=== PATIENT | female | born 1990 | race Caucasian/White ===

== ENCOUNTER 2016-12-24 14:41 | Inpatient (IN) ==
--- NOTE | 2016-12-24 14:58 | Emergency Department Note ---
Disposition Clinical Impression: Suicidal ideation Depression Qualifiers: Depression Type: unspecified Qualified Code(s): F32.9 - Major depressive disorder, single episode, unspecified Disposition: Admitted As Inpatient Condition: Good Referrals: Jolanta Leal [employer] [Advanced Practice Nurse] - Forms: ED Satisfaction Letter Time of Disposition: 16:27 Psych HPI - General Chief Complaint: ED Medical Clearance Stated Complaint: Medical clearance Time Seen by Provider: 12/24/16 14:52 Source: patient Mode of arrival: ambulatory Limitations: no limitations Nursing Notes Reviewed: Yes Vital Signs Reviewed: Yes - History of Present Illness HPI Narrative: 26-year-old with history of depression comes in with suicidal ideation. She states she is on medications but the symptoms seem to be getting worse. Pt complaint: suicidal ideation, feels depressed If medical clearance, reason: psychiatric condition Onset (ago): day(s) Duration: constant History of similar episodes: Yes Improves with: none Worsens with: none Context: significant life stressor Alleged intoxication: No Associated Psychiatric Symptoms: depression, suicidal ideation Traumatic symptoms: denies traumatic injury - Related Data Home Medications Medication Instructions Recorded Confirmed Citalopram [CeleXA] 20 mg PO DAILY 11/02/15 11/02/15 Cyclobenzaprine [Flexeril] 10 mg PO TID 11/02/15 11/02/15 Gabapentin [Neurontin] 600 mg PO TID 11/02/15 11/02/15 Allergies Allergy/AdvReac Type Severity Reaction Status Date / Time Penicillins [PCN] AdvReac Vomiting Verified 12/24/16 14:42 Constitutional: Denies: fever, chills, weakness, weight change Eyes: Denies: eye pain, eye discharge, vision change ENT ED: Denies: ear pain, throat pain, dental pain, hearing loss, epistaxis, congestion, dysphagia Cardiovascular: Denies: chest pain, palpitations, dyspnea on exertion, edema, syncope Respiratory: Denies: cough, dyspnea, wheezes, hemoptysis, stridor Gastrointestinal: Denies: abdominal pain, nausea, vomiting, diarrhea, constipation, hematemesis, melena, hematochezia Genitourinary: Denies: dysuria, frequency, hematuria, discharge Musculoskeletal: Denies: back pain, neck pain, arthralgia, myalgia Integumentary: Denies: rash, abrasion, lesions Neurological: Denies: headache, weakness, numbness, paresthesias, confusion, abnormal gait, vertigo Psychiatric: Reports: depression. 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: Reports: non-contributory - Social History Smoking Status: Current every day smoker Smokeless Tobacco Status: No Alcohol use: Reports: rarely Drug use: Reports: marijuana Physical Exam - General Limitations: no limitations General appearance: alert, in no apparent distress - Head Head exam: atraumatic, normocephalic, normal inspection - Eye Eye exam: Present: normal appearance, PERRL, EOMI - ENT ENT exam: normal exam, normal oropharynx, mucous membranes moist - Neck Neck exam: Present: normal inspection, full ROM, trachea midline - Chest Chest inspection: Present: normal inspection, symmetric chest wall rise - Respiratory Respiratory exam: Present: normal lung sounds bilaterally - Cardiovascular Cardiovascular exam: Present: regular rate, normal rhythm, normal heart sounds - Abdominal Exam Abdominal exam: Present: soft, Non-Tender. Absent: tenderness, distention, guarding, rebound, rigidity - Extremities Exam Extremities exam: Present: normal inspection, full ROM. Absent: tenderness, pedal edema - Expanded Lower Extremity Exam Neurovascular/Tendon exam: Absent: motor deficit, sensory deficit, tendon deficit Gait: observed and normal - Back Exam Back exam: Present: normal inspection, full ROM. Absent: tenderness - Neurological Exam Neurological exam: Present: alert, oriented X3 - Psychiatric Psychiatric exam: Present: normal affect, normal mood - Skin Skin exam: Present: warm, dry, intact, normal color Course Vital Signs Temperature 98.0 F 12/24/16 14:42 Pulse Rate 95 12/24/16 14:42 Respiratory Rate 16 12/24/16 14:42 Blood Pressure 137/83 12/24/16 14:42 O2 Sat by Pulse Oximetry 98 12/24/16 14:42 Temperature 98.0 F 12/24/16 14:42 Pulse Rate 95 12/24/16 14:42 Respiratory Rate 16 12/24/16 14:42 Blood Pressure 137/83 12/24/16 14:42 O2 Sat by Pulse Oximetry 98 12/24/16 14:42 Oxygen Delivery Oxygen Delivery Room Air Psych - Lab Data Result diagrams: 12/24/16 15:19 12/24/16 15:19 Lab Results 12/24/16 12/24/16 12/24/16 Range/Units 14:55 14:55 15:19 WBC 5.8 (4.3-11.1) K/mcL RBC 4.23 (3.82-4.97) M/mcL Hgb 12.4 (11.5-15.4) g/dL Hct 38.2 (35.3-44.9) % MCV 90.3 (83.0-100.0) fL MCH 29.3 (28.0-33.3) pg MCHC 32.5 (31.6-35.5) g/dL RDW 13.9 (11.5-14.5) % Plt Count 254 (140-400) K/mcL MPV 9.1 L (9.4-12.4) fL Immature Gran % 0.3 (0-4) % Seg Neutrophils % 59.8 % Lymphocytes % 29.8 % Monocytes % 5.8 % Eosinophils % 3.4 % Basophils % 0.9 % Neutrophils # 3.5 (1.6-8.9) K/mcL Lymphocytes # 1.7 (0.6-4.6) K/mcL Monocytes # 0.3 (0.0-1.3) K/mcL Eosinophils # 0.2 (0.0-0.6) K/mcL Basophils # 0.1 (0.0-0.2) K/mcL Sodium (136-145) mEq/L Potassium (3.5-4.5) mEq/L Chloride (98-109) mEq/L Carbon Dioxide (19-29) mEq/L BUN (7-20) mg/dL Creatinine (0.57-1.11) mg/dL Est GFR ( Amer) (> 60) Est GFR (Non-Af Amer) (> 60) BUN/Creatinine Ratio (6-26) Glucose (70-99) mg/dL Calculated Osmolality (280-300) Calcium (8.6-10.8) mg/dL Serum , Qual (Negative) Urine Color Yellow (Yellow) Urine Clarity Clear (Clear) Urine pH 6.0 (5.0-8.0) pH Units Ur Specific [place] 1.011 (1.010-1.025) Urine Protein Negative (Neg-Trace) mg/dL Urine Glucose (UA) Normal (Normal) mg/dL Urine Ketones Negative (Negative) mg/dL Urine Blood Moderate H (Negative) Urine Nitrite Negative (Negative) Urine Bilirubin Negative (Negative) Urine Urobilinogen Normal (Normal) mg/dL Ur Leukocyte Esterase Negative (Negative) Urine Microscopic RBC 3-5 H (0-3) per hpf Urine Microscopic WBC 0-3 (0-3) per hpf Ur Squamous Epith Cells Many H (None-Few) per lpf Urine Bacteria None Seen (None-Few) per hpf Hyaline Casts None Seen (None-Few) per lpf Salicylates (15-30) mg/dL Urine Opiates Screen Negative (Traccz=844) ng/mL Acetaminophen (10-30) mcg/mL Ur Barbiturates Screen Negative (Tgcdxn=014) ng/mL Ur Phencyclidine Scrn Negative (Cutoff=25) ng/mL Ur Amphetamines Screen Negative (Mfjftb=6742) ng/mL U Benzodiazepines Scrn Negative (Bestbu=573) ng/mL Urine Cocaine Screen Negative (Cutoff= 300) ng/mL U Marijuana (THC) Screen Negative (Cutoff = 50) ng/mL Ethyl Alcohol (0-10) mg/dL 12/24/16 12/24/16 Range/Units 15:19 15:19 WBC (4.3-11.1) K/mcL RBC (3.82-4.97) M/mcL Hgb (11.5-15.4) g/dL Hct (35.3-44.9) % MCV (83.0-100.0) fL MCH (28.0-33.3) pg MCHC (31.6-35.5) g/dL RDW (11.5-14.5) % Plt Count (140-400) K/mcL MPV (9.4-12.4) fL Immature Gran % (0-4) % Seg Neutrophils % % Lymphocytes % % Monocytes % % Eosinophils % % Basophils % % Neutrophils # (1.6-8.9) K/mcL Lymphocytes # (0.6-4.6) K/mcL Monocytes # (0.0-1.3) K/mcL Eosinophils # (0.0-0.6) K/mcL Basophils # (0.0-0.2) K/mcL Sodium 140 (136-145) mEq/L Potassium 4.1 (3.5-4.5) mEq/L Chloride 106 (98-109) mEq/L Carbon Dioxide 26 (19-29) mEq/L BUN 10 (7-20) mg/dL Creatinine 0.80 (0.57-1.11) mg/dL Est GFR ( Amer) > 60 (> 60) Est GFR (Non-Af Amer) > 60 (> 60) BUN/Creatinine Ratio 13 (6-26) Glucose 129 H (70-99) mg/dL Calculated Osmolality 291 (280-300) Calcium 8.7 (8.6-10.8) mg/dL Serum , Qual Negative (Negative) Urine Color (Yellow) Urine Clarity (Clear) Urine pH (5.0-8.0) pH Units Ur Specific [place] (1.010-1.025) Urine Protein (Neg-Trace) mg/dL Urine Glucose (UA) (Normal) mg/dL Urine Ketones (Negative) mg/dL Urine Blood (Negative) Urine Nitrite (Negative) Urine Bilirubin (Negative) Urine Urobilinogen (Normal) mg/dL Ur Leukocyte Esterase (Negative) Urine Microscopic RBC (0-3) per hpf Urine Microscopic WBC (0-3) per hpf Ur Squamous Epith Cells (None-Few) per lpf Urine Bacteria (None-Few) per hpf Hyaline Casts (None-Few) per lpf Salicylates < 5.0 L (15-30) mg/dL Urine Opiates Screen (Joimon=551) ng/mL Acetaminophen < 1.0 L (10-30) mcg/mL Ur Barbiturates Screen (Nyabcs=622) ng/mL Ur Phencyclidine Scrn (Cutoff=25) ng/mL Ur Amphetamines Screen (Kjvcqq=4516) ng/mL U Benzodiazepines Scrn (Ytjrkp=107) ng/mL Urine Cocaine Screen (Cutoff= 300) ng/mL U Marijuana (THC) Screen (Cutoff = 50) ng/mL Ethyl Alcohol < 10 (0-10) mg/dL Psychiatric Medical Clearance - Medical Clearance Checklist Does the patient have a NEW psychiatric condition?: No Any abnormalities indicating possible medical illness?: No Any history of medical issues?: No Medical History: No Social History Section defined Any abnormal vital signs prior to transfer?: No Current Vitals: Last Vital Signs Temp 98.0 F 12/24/16 14:42 Pulse 95 12/24/16 14:42 Resp 16 12/24/16 14:42 BP 137/83 12/24/16 14:42 Pulse Ox 98 12/24/16 14:42 Is the patient intoxicated or cognitively impaired?: No Psychiatric Lab Panel: Drug Levels and Toxicity 12/24/16 12/24/16 14:55 15:19 Urine Opiates Screen Negative Acetaminophen < 1.0 L Ur Barbiturates Screen Negative Ur Phencyclidine Scrn Negative Ur Amphetamines Screen Negative U Benzodiazepines Scrn Negative Urine Cocaine Screen Negative U Marijuana (THC) Screen Negative Ethyl Alcohol < 10 Any abnormalities on the physical exam?: No Any abnormal labs?: No Abnormal Labs: Abnormal lab results MPV 9.1 fL (9.4-12.4) L 12/24/16 15:19 Glucose 129 mg/dL (70-99) H 12/24/16 15:19 Urine Blood Moderate (Negative) H 12/24/16 14:55 Urine Microscopic RBC 3-5 per hpf (0-3) H 12/24/16 14:55 Ur Squamous Epith Cells Many per lpf (None-Few) H 12/24/16 14:55 Salicylates < 5.0 mg/dL (15-30) L 12/24/16 15:19 Acetaminophen < 1.0 mcg/mL (10-30) L 12/24/16 15:19 Does the patient require durable medical equiptment?: No Is the patient ambulatory?: Yes Is the patient a fall risk?: No Has the patient been medically cleared?: Yes Any acute medical condition require Tx prior to transfer?: No Statement of Medical Clearance: I have evaluated the patient, reviewed diagnostic information, and certify that the patient's medical condition is sufficiently stable that transfer to the psychiatric unit does not pose a significant risk of deterioration.
[2016-12-24 15:13] LABS: Bilirubin,Urine Negative (Negative); Blood,Urine Moderate (Negative); Clarity,Urine Clear (Clear); Color,Urine Yellow (Yellow); Glucose,Urine (UA) Normal (Normal); Ketones,Urine Negative (Negative); Leukocyte Esterase,Urine Negative (Negative); Nitrite,Urine Negative (Negative); Protein,Urine Negative (Neg-Trace); Specific Gravity,Urine 1.011 (1.010-1.025); Urobilinogen,Urine Normal (Normal)
[2016-12-24 15:16] LABS: Bacteria,Urine None Seen per hpf (None-Few); Hyaline Casts,Urine None Seen per lpf (None-Few); Squamous Epithelial Cell,Urine Many per lpf (None-Few); WBC,Urine 0-3 per hpf (0-3)
[2016-12-24 15:17] LABS: Amphetamine Screen,Urine Negative ng/mL (Cutoff=1000); Barbiturate Screen,Urine Negative ng/mL (Cutoff=200); Benzodiazepines Screen,Urine Negative ng/mL (Cutoff=200); Cannabinoid Screen,Urine Negative ng/mL (Cutoff = 50); Cocaine Screen,Urine Negative ng/mL (Cutoff= 300); Opiate Screen,Urine Negative ng/mL (Cutoff=300); Phencyclidine Screen,Urine Negative ng/mL (Cutoff=25)
[2016-12-24 15:36] LABS: Basophils # 0.1 K/mcL (0.0-0.2); Basophils % 0.9 %; Eosinophils # 0.2 K/mcL (0.0-0.6); Eosinophils % 3.4 %; Hematocrit 38.2 % (35.3-44.9); Hemoglobin 12.4 g/dL (11.5-15.4); Immature Granulocytes % 0.3 % (0-4); Lymphocytes # 1.7 K/mcL (0.6-4.6); Lymphocytes % 29.8 %; Mean Corpuscular HGB Conc 32.5 g/dL (31.6-35.5); Mean Corpuscular Hemoglobin 29.3 pg (28.0-33.3); Mean Corpuscular Volume 90.3 fL (83.0-100.0); Mean Platelet Volume 9.1 fL (9.4-12.4); Monocytes # 0.3 K/mcL (0.0-1.3); Monocytes % 5.8 %; Neutrophils # 3.5 K/mcL (1.6-8.9); Platelet Count 254 K/mcL (140-400); Red Blood Count 4.23 M/mcL (3.82-4.97); Red Cell Distribution Width 13.9 % (11.5-14.5); Segmented Neutrophils % 59.8 %
[2016-12-24 15:48] LABS: Acetaminophen < 1.0 mcg/mL (10-30); BUN/Creatinine Ratio 13 (6-26); Blood Urea Nitrogen 10 mg/dL (7-20); Calcium 8.7 mg/dL (8.6-10.8); Carbon Dioxide 26 mEq/L (19-29); Chloride 106 mEq/L (98-109); Ethanol < 10 mg/dL (0-10); Glucose 129 mg/dL (70-99); Osmolality,Calculated 291 (280-300); Potassium 4.1 mEq/L (3.5-4.5); Salicylate < 5.0 mg/dL (15-30); Sodium 140 mEq/L (136-145); eGFR For African Americans > 60 (> 60); eGFR For Non-African Americans > 60 (> 60)
[2016-12-24] MEDS ORDERED: traZODone 50 MG TABLET PO PRN (17:24)
[2016-12-24] MEDS ORDERED: Haloperidol Lactate 5 MG/ML VIAL IM PRN (17:24)
[2016-12-24] MEDS ORDERED: *HR* LORazepam 1 MG TABLET PO PRN (17:24)
[2016-12-24] MEDS ORDERED: *HR* LORazepam 2 MG/ML VIAL IM PRN (17:24)
[2016-12-24] MEDS ORDERED: Mag Hydrox/Al Hydrox/Simeth 30 ML UDC PO PRN (17:24)
[2016-12-24] MEDS ORDERED: hydrOXYzine pamoate 25 MG CAPSULE PO PRN (17:24)
[2016-12-24] MEDS ORDERED: MOM Conc 10 ML UD.LIQ PO PRN (17:24)
[2016-12-24] MEDS ORDERED: Ibuprofen 800 MG TABLET PO PRN (17:31)
[2016-12-24] MEDS: Nicotine 21 MG PATCH.TD24 TD SCH (18:32)
[2016-12-24] MEDS: RisperiDAL 3 MG TABLET PO SCH (21:25)
[2016-12-24] MEDS: Carbidopa/Levodopa 25/100 TABLET PO SCH (21:25)
[2016-12-24] MEDS: Gabapentin 400 MG CAPSULE PO SCH (21:25)
[2016-12-25] MEDS: Gabapentin 300 MG CAPSULE PO SCH (08:42)
[2016-12-25] MEDS: Nicotine 21 MG PATCH.TD24 TD SCH (08:43)
[2016-12-25] MEDS: Carbidopa/Levodopa 25/100 TABLET PO SCH ×2 (08:44→21:12)
--- NOTE | 2016-12-25 09:49 | Psychiatry History & Physical ---
Date of Encounter: 12/25/16 Time of Encounter: 09:44 History of Present Illness Patient Stated Chief Complaint: depressed,suicidal Medicare Admission Attestation: For traditional Medicare patients the provided hospital inpatient services are reasonable and necessary and in the case of services not specified as inpatient -only under 42 CFR 419.22 (n), that they are appropriately provided as inpatient services in accordance 42 CFR 412.3. For Critical Access Hospital the patient may reasonably be expected to be discharged or transferred to a hospital within 96 hours after admission to the Critical Access Hospital. Admitted From: Emergency Dept History of Present Illness: Ms. Salas is a 26 year old female was history of depression and bipolar disorder presented to the emergency department complaining of suicidal ideation with plan to overdose on her medication. Patient is under care off psychiatrist and see a counselor and her medication has been changed in the past several weeks from Zyprexa to Risperdal also Lexapro was added. Patient reported Lexapro has not been helping her depression and in the process she responded well to Zoloft. Patient also is having some hormonal problems and being evaluated by her primary care provider. She reported poor sleep, irritability, depressed mood and poor energy and suicidal ideation. Past Med Surg Social Fam HX - Past Medical History Medical history: asthma - Past Psychiatric History Psychiatric history: Reports: bipolar, depression, prior suicide attempt, previous psychiatric hospitalization Past psychiatric history details: Previous hospitalization in [place] and [place]. Family psychiatric history: Unknown Family History of Suicide: Unknown - Past Surgical History Surgical History: cholecystectomy - Social History Smoking Status: Current every day smoker Smokeless Tobacco Status: No Alcohol use: rarely Drug use: marijuana Medications & Allergies Cyclobenzaprine [Flexeril] 10 mg PO BID 11/02/15 [History] Gabapentin [Neurontin] 600 - 1,200 mg PO QAM AND QHS 11/02/15 [History] Carbidopa/Levodopa [Carbidopa-Levodopa 25-100 Tab] 2 tab PO BID 12/24/16 [ History] Ergocalciferol (VITAMIN D2) [Vitamin D2] 50,000 unit PO QWEEK 12/24/16 [History] Escitalopram [Lexapro] 10 mg PO DAILY 12/24/16 [History] Etonogestrel/Ethinyl Estradiol [Nuvaring Vaginal Ring] 1 each VG AD 12/24/16 [ History] Gabapentin [Neurontin] 600 mg PO QPM 12/24/16 [History] Ibuprofen [Ibuprofen] 800 mg PO Q8H PRN 12/24/16 [History] Propranolol [Inderal] 20 mg PO BID 12/24/16 [History] RisperiDONE [Risperidone] 3 mg PO HS 12/24/16 [History] Allergies Penicillins [PCN] Adverse Reaction (Verified 12/24/16 14:42) Vomiting Review of Systems Psychiatric: Reports: depression, abnormal sleep pattern, suicidal ideation, irritability Mental Status Exam Patient orientation: Yes Person, Yes Time, Yes Place Level of alertness: Alert Patient appearance: Appropriate, Well Groomed, Obese Behavior: calm, cooperative Psychomotor activity: Normal Eye contact: Maintains Eye Contact Mood description: Depressed, Anxious Affect description: congruent with mood, full range Speech pattern: Normal rate, Normal rhythm, Normal tone Speech volume: Normal Thought process: Linear, Goal Oriented Thought content: Yes Suicidal ideation, No Homicidal ideation, No Overt delusions Perceptual disturbances: No Auditory hallucinations, No Visual hallucinations Attention span: Capable of Focused Attention Memory description: Grossly Intact Patient reliability: Reliable Historian Intelligence estimate: Average Judgment: Limited Insight: Partial Results - Vital Signs Vital signs: Temp Pulse Resp BP Pulse Ox 97.8 F 87 18 143/90 98 12/24/16 19:47 12/24/16 19:47 12/24/16 19:47 12/24/16 19:47 12/24/16 14:42 - Labs Labs: Laboratory Last Values WBC 5.8 K/mcL (4.3-11.1) 12/24/16 15:19 RBC 4.23 M/mcL (3.82-4.97) 12/24/16 15:19 Hgb 12.4 g/dL (11.5-15.4) 12/24/16 15:19 Hct 38.2 % (35.3-44.9) 12/24/16 15:19 MCV 90.3 fL (83.0-100.0) 12/24/16 15:19 MCH 29.3 pg (28.0-33.3) 12/24/16 15:19 MCHC 32.5 g/dL (31.6-35.5) 12/24/16 15:19 RDW 13.9 % (11.5-14.5) 12/24/16 15:19 Plt Count 254 K/mcL (140-400) 12/24/16 15:19 MPV 9.1 fL (9.4-12.4) L 12/24/16 15:19 Immature Gran % 0.3 % (0-4) 12/24/16 15:19 Seg Neutrophils % 59.8 % 12/24/16 15:19 Lymphocytes % 29.8 % 12/24/16 15:19 Monocytes % 5.8 % 12/24/16 15:19 Eosinophils % 3.4 % 12/24/16 15:19 Basophils % 0.9 % 12/24/16 15:19 Neutrophils # 3.5 K/mcL (1.6-8.9) 12/24/16 15:19 Lymphocytes # 1.7 K/mcL (0.6-4.6) 12/24/16 15:19 Monocytes # 0.3 K/mcL (0.0-1.3) 12/24/16 15:19 Eosinophils # 0.2 K/mcL (0.0-0.6) 12/24/16 15:19 Basophils # 0.1 K/mcL (0.0-0.2) 12/24/16 15:19 Sodium 140 mEq/L (136-145) 12/24/16 15:19 Potassium 4.1 mEq/L (3.5-4.5) 12/24/16 15:19 Chloride 106 mEq/L (98-109) 12/24/16 15:19 Carbon Dioxide 26 mEq/L (19-29) 12/24/16 15:19 BUN 10 mg/dL (7-20) 12/24/16 15:19 Creatinine 0.80 mg/dL (0.57-1.11) 12/24/16 15:19 Est GFR ( Amer) > 60 (> 60) 12/24/16 15:19 Est GFR (Non-Af Amer) > 60 (> 60) 12/24/16 15:19 BUN/Creatinine Ratio 13 (6-26) 12/24/16 15:19 Glucose 129 mg/dL (70-99) H 12/24/16 15:19 Calculated Osmolality 291 (280-300) 12/24/16 15:19 Calcium 8.7 mg/dL (8.6-10.8) 12/24/16 15:19 Serum , Qual Negative (Negative) 12/24/16 15:19 Urine Color Yellow (Yellow) 12/24/16 14:55 Urine Clarity Clear (Clear) 12/24/16 14:55 Urine pH 6.0 pH Units (5.0-8.0) 12/24/16 14:55 Ur Specific [place] 1.011 (1.010-1.025) 12/24/16 14:55 Urine Protein Negative mg/dL (Neg-Trace) 12/24/16 14:55 Urine Glucose (UA) Normal mg/dL (Normal) 12/24/16 14:55 Urine Ketones Negative mg/dL (Negative) 12/24/16 14:55 Urine Blood Moderate (Negative) H 12/24/16 14:55 Urine Nitrite Negative (Negative) 12/24/16 14:55 Urine Bilirubin Negative (Negative) 12/24/16 14:55 Urine Urobilinogen Normal mg/dL (Normal) 12/24/16 14:55 Ur Leukocyte Esterase Negative (Negative) 12/24/16 14:55 Urine Microscopic RBC 3-5 per hpf (0-3) H 12/24/16 14:55 Urine Microscopic WBC 0-3 per hpf (0-3) 12/24/16 14:55 Ur Squamous Epith Cells Many per lpf (None-Few) H 12/24/16 14:55 Urine Bacteria None Seen per hpf (None-Few) 12/24/16 14:55 Hyaline Casts None Seen per lpf (None-Few) 12/24/16 14:55 Salicylates < 5.0 mg/dL (15-30) L 12/24/16 15:19 Urine Opiates Screen Negative ng/mL (Rvlzmf=598) 12/24/16 14:55 Acetaminophen < 1.0 mcg/mL (10-30) L 12/24/16 15:19 Ur Barbiturates Screen Negative ng/mL (Gjzvbd=702) 12/24/16 14:55 Ur Phencyclidine Scrn Negative ng/mL (Cutoff=25) 12/24/16 14:55 Ur Amphetamines Screen Negative ng/mL (Wowblf=5561) 12/24/16 14:55 U Benzodiazepines Scrn Negative ng/mL (Vgssxb=667) 12/24/16 14:55 Urine Cocaine Screen Negative ng/mL (Cutoff= 300) 12/24/16 14:55 U Marijuana (THC) Screen Negative ng/mL (Cutoff = 50) 12/24/16 14:55 Ethyl Alcohol < 10 mg/dL (0-10) 12/24/16 15:19 Assessment and Plan (1) Bipolar 1 disorder, depressed Current visit: Yes Status: Acute Plan: Admit inpatient for safety and stabilization, Close observation, Suicide Precautions per unit protocol, Encourage participation in unit milieu, Group Therapy, Monitor sleep, Monitor appetite Additional Plan: 1. Discontinue Lexapro due to lack of response. 2. Start Zoloft 50 mg daily, history of good response 3. Order prolactin level to evaluate side effects of risperidone. Risks, benefits, side effects, alternatives discussed w/pt: Yes Patient agreeable to treatment: Yes
[2016-12-25] MEDS: Gabapentin 400 MG CAPSULE PO SCH (21:12)
[2016-12-25] MEDS: RisperiDAL 3 MG TABLET PO SCH (21:13)
[2016-12-26] MEDS: Nicotine 21 MG PATCH.TD24 TD SCH (08:48)
[2016-12-26] MEDS: Gabapentin 300 MG CAPSULE PO SCH (08:49)
[2016-12-26] MEDS: Carbidopa/Levodopa 25/100 TABLET PO SCH ×2 (08:49→20:56)
--- NOTE | 2016-12-26 12:37 | Psychiatry Progress Note ---
Date of Encounter: 12/26/16 Time of Encounter: 12:00 Subjective Interval history: Patient seen for follow-up. Nursing staff reports she is compliant with his medication and seclusive at time. She tolerated adding Zoloft and denies any side effects, she reports that "" her head is clear. Denies suicidal ideation. I discussed with patient that prolactin level was elevated and we will continue to monitor any side effects from Risperdal. Also she will be tapered off Sinemet and monitor her response regarding her muscle spasm. Patient is interactive and interested and medication adjustments and motivated to do more activities. Review of Systems Psychiatric: Reports: depression, abnormal sleep pattern, suicidal ideation, mood swings Objective: Exam Patient orientation: Yes Person, Yes Time, Yes Place Level of alertness: Alert Patient appearance: Appropriate, Well Groomed, Obese Behavior: calm, cooperative Psychomotor activity: Normal Eye contact: Maintains Eye Contact Mood description: Euthymic/stable, Anxious Affect description: congruent with mood, full range Speech pattern: Normal rate, Normal rhythm, Normal tone Speech volume: Normal Thought process: Linear, Goal Oriented Thought content: Yes Suicidal ideation, No Homicidal ideation, No Overt delusions Perceptual disturbances: No Auditory hallucinations, No Visual hallucinations Judgment: Limited Insight: Partial Results - Vital Signs Vital Signs: Temp Pulse Resp BP Pulse Ox 97.8 F 107 18 122/80 98 12/26/16 08:37 12/26/16 08:37 12/26/16 08:37 12/26/16 08:37 12/24/16 14:42 - Labs Labs: Laboratory Results - last 24 hr 12/25/16 11:46 Prolactin 35.43 H Assessment and Plan (1) Bipolar 1 disorder, depressed Current visit: Yes Status: Acute Plan: Continue hospitalization, Close observation, Suicide Precautions per unit protocol, Encourage participation in unit milieu, Group Therapy, Monitor sleep, Monitor appetite Additional Plan: We will taper off Sinemet. Discussed with patient's medication changes and she is agreeable. Risks, benefits, side effects, alternatives discussed w/pt: Yes Patient agreeable to treatment: Yes Consult Discharge Plan - Plan Referrals: [facility] [Outside] - 01/01/17 8:00 am (The above appointment is with Dr. Hammer for counseling. You will also see Dr. Iqbal on 02/20/2017 at 8: 00am)
[2016-12-26] MEDS: RisperiDAL 3 MG TABLET PO SCH (20:56)
[2016-12-26] MEDS: Gabapentin 400 MG CAPSULE PO SCH (20:56)
[2016-12-27] MEDS: Gabapentin 300 MG CAPSULE PO SCH (08:25)
[2016-12-27] MEDS: Carbidopa/Levodopa 25/100 TABLET PO SCH ×2 (08:26→20:57)
[2016-12-27] MEDS: Nicotine 21 MG PATCH.TD24 TD SCH (08:27)
--- NOTE | 2016-12-27 13:49 | Psychiatry Progress Note ---
Date of Encounter: 12/27/16 Time of Encounter: 01:16 Subjective Interval history: Patient seen and interviewed. History and physical examination reviewed. The patient continued to do well. Making progress. Suicidal ideations have subsided for most part. Patient is endorsing some hopeless feelings but is attending groups and participating in activities and is working on a safety plan. Tolerating medications fairly well. Becoming more future oriented. Overall doing better Review of Systems Integumentary: Reports: other Psychiatric: Reports: depression, anxiety Objective: Exam Patient orientation: Yes Person, Yes Time, Yes Place Level of alertness: Alert Patient appearance: Appropriate, Well Groomed, Obese Behavior: calm, cooperative Psychomotor activity: Normal Eye contact: Maintains Eye Contact Mood description: Euthymic/stable, Anxious Affect description: congruent with mood, full range Speech pattern: Normal rate, Normal rhythm, Normal tone Speech volume: Normal Thought process: Linear, Goal Oriented Thought content: No Suicidal ideation, No Homicidal ideation, No Overt delusions Perceptual disturbances: No Auditory hallucinations, No Visual hallucinations Judgment: Limited Insight: Partial Results - Vital Signs Vital Signs: Temp Pulse Resp BP Pulse Ox 97.4 F L 99 16 114/79 98 12/27/16 08:28 12/27/16 08:28 12/27/16 08:28 12/27/16 08:28 12/24/16 14:42 Assessment and Plan (1) Bipolar 1 disorder, depressed Current visit: Yes Status: Acute Plan: Continue hospitalization, Close observation, Suicide Precautions per unit protocol, Encourage participation in unit milieu, Group Therapy, Monitor sleep, Monitor appetite Additional Plan: Continue current medications. Possible discharge tomorrow. Risks, benefits, side effects, alternatives discussed w/pt: Yes Patient agreeable to treatment: Yes Consult Discharge Plan - Plan Referrals: [facility] [Outside] - 01/01/17 8:00 am (The above appointment is with Dr. Hammer for counseling. You will also see Dr. Iqbal on 02/20/2017 at 8: 00am)
[2016-12-27] MEDS: RisperiDAL 3 MG TABLET PO SCH (20:57)
[2016-12-27] MEDS: Gabapentin 400 MG CAPSULE PO SCH (20:57)
[2016-12-27] MEDS ORDERED: Carbidopa/Levodopa 25/100 TABLET PO ONE (22:20)
[2016-12-28] MEDS: Nicotine 21 MG PATCH.TD24 TD SCH (09:06)
[2016-12-28] MEDS: Carbidopa/Levodopa 25/100 TABLET PO SCH (09:06)
[2016-12-28] MEDS: Gabapentin 300 MG CAPSULE PO SCH (09:07)
[2016-12-28 09:12] VITALS: BP 121/78
--- NOTE | 2016-12-28 10:48 | Discharge Summary ---
Date of Encounter: 12/28/16 Time of Encounter: 09:30 Diagnosis - Discharge Diagnosis (1) Bipolar 1 disorder, depressed Status: Acute Medications - Discharge Medications Prescriptions: Sertraline [Zoloft] 50 mg PO DAILY #30 tablet Cyclobenzaprine [Flexeril] 10 mg PO BID 11/02/15 [History] Gabapentin [Neurontin] 600 - 1,200 mg PO QAM AND QHS 11/02/15 [History] Ergocalciferol (VITAMIN D2) [Vitamin D2] 50,000 unit PO QWEEK 12/24/16 [History] Etonogestrel/Ethinyl Estradiol [Nuvaring Vaginal Ring] 1 each VG AD 12/24/16 [ History] Gabapentin [Neurontin] 600 mg PO QPM 12/24/16 [History] Ibuprofen 800 mg PO Q8H PRN 12/24/16 [History] Propranolol [Inderal] 20 mg PO BID 12/24/16 [History] RisperiDONE [Risperidone] 3 mg PO HS 12/24/16 [History] Sertraline [Zoloft] 50 mg PO DAILY #30 tablet 12/28/16 [Rx] Allergies Penicillins [PCN] Adverse Reaction (Verified 12/24/16 14:42) Vomiting Results Procedures and tests throughout hospitalization: Completed Lab Orders Category Date Time Status Prolactin Routine Lab 12/25/16 11:46 Completed Provider Date of admission: 12/24/16 16:36 Primary care physician: PCP NO Discharging clinician: Dong Downing Assessment and Plan - Patient/Caregiver Discharge Instructions Activity: resume usual activities as tolerated Diet: regular diet - Follow up Plan Follow up with: [facility] [Outside] - 01/01/17 8:00 am (The above appointment is with Dr. Hammer for counseling. You will also see Dr. Iqbal on 02/20/2017 at 8: 00am) Overall status at discharge: Stable Disposition: Home, Self-Care Hospital Course Hospital course: Ms. Salas is a 26 year old female who was hospitalized for depression and suicidal ideation the plan to overdose After reviewing the symptom diagnoses and treatment planning spending that his benefits side effects alternatives to treatment consonants of no treatment getting informed consent from the patient patient was treated with Zoloft 50 mg daily and Risperdal 3 mg at bedtime. Patient's Sinemet was tapered and discontinued. Patient was continued on Neurontin which she was taking prior to hospitalization. Patient was encouraged to attend and parts of it in groups and activities on the unit which she did. Patient started noticing improvement in her mood or hopelessness helplessness subsided she became future oriented and worked on a safety plan and is able to verbalize it. Patient tolerated medications fairly well did not report any side effects. Overall patient's condition stabilized. - Time Spent with Patient Total time spent providing and/or coordinating discharge services: Less than 30 minutes Quality - Multiple Antipsychotics Patient discharged on 2 or more antipsychotic medications: No Procedures - Procedures Procedures: Medication Management, Crisis Stabilization, Supportive Therapy, Group Therapy, Psychoeducational Therapy Mental Status Exam - Mental Status Exam Patient orientation: Yes Person, Yes Time, Yes Place Level of alertness: Alert Patient appearance: Appropriate, Well Groomed, Obese Behavior: calm, cooperative Psychomotor activity: Normal Eye contact: Maintains Eye Contact Mood description: Euthymic/stable Affect description: congruent with mood, full range Speech pattern: Normal rate, Normal rhythm, Normal tone Speech Volume: Normal Thought process: Linear, Goal Oriented Thought Content: No Suicidal ideation, No Homicidal ideation, No Overt delusions Perceptual Disturbances: No Auditory hallucinations, No Visual hallucinations Judgment: Good Insight: Full
== END 2016-12-28 12:05 | disposition home or self-care (01) | DRG 885 ==
LOC: EMEROO 14:41 → SUATTDRO 16:36 → 1ANU 16:36
PROVIDERS: ADMIT Psychiatry & Neurology Psychiatry; ATTEND Psychiatry & Neurology Psychiatry

== ENCOUNTER 2017-01-13 21:10 | Inpatient (IN) ==
--- NOTE | 2017-01-13 22:05 | Emergency Department Note ---
Disposition Clinical Impression: Suicidal thoughts Disposition: Still a Patient Referrals: NO,PCP [Primary Care Provider] - Forms: ED Satisfaction Letter Psych HPI - General Chief Complaint: ED Psychiatric Symptoms Stated Complaint: si has mills on arms/tried to cut herself Time Seen by Provider: 01/13/17 21:59 Source: patient Mode of arrival: ambulatory Limitations: no limitations Nursing Notes Reviewed: Yes Vital Signs Reviewed: Yes - History of Present Illness HPI Narrative: Patient presents to emergency department complaining of suicidal thoughts. Patient states she was recently admitted to psych. She was taking off her Lexapro and started on Zoloft. Patient states she has tried to overdose before and she would again. Patient states she tried to cut her left wrist with a knife but it was too dull. Denies any physical complaints. Onset (ago): hour(s) Duration: constant History of similar episodes: Yes Improves with: none Worsens with: medication Context: new medication(s) Alleged intoxication: No Associated Psychiatric Symptoms: depression, suicidal ideation Traumatic symptoms: denies traumatic injury Treatments prior to arrival: none Self harm or harm to others: admits thoughts of self harm, self-inflicted trauma - Related Data Home Medications Medication Instructions Recorded Confirmed Cyclobenzaprine [Flexeril] 10 mg PO BID 11/02/15 12/24/16 Gabapentin [Neurontin] 600 - 1,200 mg PO QAM AND QHS 11/02/15 12/24/16 Ergocalciferol (VITAMIN D2) 50,000 unit PO QWEEK 12/24/16 12/24/16 [Vitamin D2] Etonogestrel/Ethinyl Estradiol 1 each VG AD 12/24/16 12/24/16 [Nuvaring Vaginal Ring] Gabapentin [Neurontin] 600 mg PO QPM 12/24/16 12/24/16 Ibuprofen 800 mg PO Q8H PRN 12/24/16 12/24/16 Propranolol [Inderal] 20 mg PO BID 12/24/16 12/24/16 RisperiDONE [Risperidone] 3 mg PO HS 12/24/16 12/24/16 Previous Rx's Medication Instructions Recorded Sertraline [Zoloft] 50 mg PO DAILY #30 tablet 12/28/16 Allergies Allergy/AdvReac Type Severity Reaction Status Date / Time Penicillins [PCN] AdvReac Vomiting Verified 01/13/17 21:19 All systems ED: reviewed and negative except as stated. Constitutional: Denies: fever Cardiovascular: Denies: chest pain Gastrointestinal: Denies: abdominal pain, vomiting, diarrhea Past Medical History - Past Medical History Attestation: Yes The following information was validated with the patient. 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 One small abrasion to left wrist. Abdomen soft nontender. - General Limitations: no limitations General appearance: alert - Head Head exam: atraumatic, normocephalic - Eye Eye exam: Present: normal appearance - ENT ENT exam: normal exam, normal oropharynx - Neck Neck exam: Present: normal inspection - Chest Chest inspection: Present: normal inspection - Respiratory Respiratory exam: Present: normal lung sounds bilaterally - Cardiovascular Cardiovascular exam: Present: regular rate, normal rhythm, normal heart sounds - Abdominal Exam Abdominal exam: Present: soft, Non-Tender - Neurological Exam Neurological exam: Present: alert, oriented X3, CN II-XII intact - Psychiatric Psychiatric exam: Present: normal mood, flat affect - Skin Skin exam: Present: warm, dry, intact Course Course Narrative: Awake alert and cooperative. 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 Time: 22:05 Vital Signs Temperature 98.1 F 01/13/17 21:19 Pulse Rate 95 01/13/17 21:19 Respiratory Rate 20 01/13/17 21:19 Blood Pressure 113/75 01/13/17 21:19 O2 Sat by Pulse Oximetry 95 01/13/17 21:19 Temperature 98.1 F 01/13/17 21:19 Pulse Rate 95 01/13/17 21:19 Respiratory Rate 20 01/13/17 21:19 Blood Pressure 113/75 01/13/17 21:19 O2 Sat by Pulse Oximetry 95 01/13/17 21:19 Oxygen Delivery Oxygen Delivery Room Air Psych - Lab Data Result diagrams: 01/13/17 22:17 Lab Results 01/13/17 Range/Units 22:17 WBC 9.6 (4.3-11.1) K/mcL RBC 4.49 (3.82-4.97) M/mcL Hgb 13.2 (11.5-15.4) g/dL Hct 39.6 (35.3-44.9) % MCV 88.2 (83.0-100.0) fL MCH 29.4 (28.0-33.3) pg MCHC 33.3 (31.6-35.5) g/dL RDW 13.9 (11.5-14.5) % Plt Count 289 (140-400) K/mcL MPV 9.4 (9.4-12.4) fL Immature Gran % 0.2 (0-4) % Seg Neutrophils % 57.8 % Lymphocytes % 32.1 % Monocytes % 6.6 % Eosinophils % 2.7 % Basophils % 0.6 % Neutrophils # 5.6 (1.6-8.9) K/mcL Lymphocytes # 3.1 (0.6-4.6) K/mcL Monocytes # 0.6 (0.0-1.3) K/mcL Eosinophils # 0.3 (0.0-0.6) K/mcL Basophils # 0.1 (0.0-0.2) K/mcL Psychiatric Medical Clearance - Medical Clearance Checklist Medical History: No Social History Section defined Current Vitals: Last Vital Signs Temp 98.1 F 01/13/17 21:19 Pulse 95 01/13/17 21:19 Resp 20 01/13/17 21:19 BP 113/75 01/13/17 21:19 Pulse Ox 95 01/13/17 21:19 Statement of Medical Clearance: I have evaluated the patient, reviewed diagnostic information, and certify that the patient's medical condition is sufficiently stable that transfer to the psychiatric unit does not pose a significant risk of deterioration.
[2017-01-13] MEDS ORDERED: Tdap (Boostrix) Vaccine 0.5 ML SYRINGE IM ONE (22:08)
[2017-01-13 22:24] LABS: Basophils # 0.1 K/mcL (0.0-0.2); Basophils % 0.6 %; Eosinophils # 0.3 K/mcL (0.0-0.6); Eosinophils % 2.7 %; Hematocrit 39.6 % (35.3-44.9); Hemoglobin 13.2 g/dL (11.5-15.4); Immature Granulocytes % 0.2 % (0-4); Lymphocytes # 3.1 K/mcL (0.6-4.6); Lymphocytes % 32.1 %; Mean Corpuscular HGB Conc 33.3 g/dL (31.6-35.5); Mean Corpuscular Hemoglobin 29.4 pg (28.0-33.3); Mean Corpuscular Volume 88.2 fL (83.0-100.0); Mean Platelet Volume 9.4 fL (9.4-12.4); Monocytes # 0.6 K/mcL (0.0-1.3); Monocytes % 6.6 %; Neutrophils # 5.6 K/mcL (1.6-8.9); Platelet Count 289 K/mcL (140-400); Red Blood Count 4.49 M/mcL (3.82-4.97); Red Cell Distribution Width 13.9 % (11.5-14.5); Segmented Neutrophils % 57.8 %
[2017-01-13 22:44] LABS: Alanine Aminotransferase 12 Units/L (0-55); Albumin 3.8 g/dL (3.5-5.0); Alkaline Phosphatase 64 Units/L (38-126); Aspartate Amino Transferase 12 Units/L (5-34); BUN/Creatinine Ratio 9 (6-26); Bilirubin,Total 0.3 mg/dL (0.2-1.2); Blood Urea Nitrogen 7 mg/dL (7-20); Calcium 8.8 mg/dL (8.6-10.8); Carbon Dioxide 19 mEq/L (19-29); Chloride 107 mEq/L (98-109); Globulin 3.8 g/dL (2.4-3.5); Glucose 112 mg/dL (70-99); Osmolality,Calculated 279 (280-300); Potassium 3.7 mEq/L (3.5-4.5); Sodium 135 mEq/L (136-145); Total Protein 7.6 g/dL (6.0-8.3); eGFR For African Americans > 60 (> 60); eGFR For Non-African Americans > 60 (> 60)
[2017-01-13 22:45] LABS: Acetaminophen < 1.0 mcg/mL (10-30); Ethanol < 10 mg/dL (0-10)
[2017-01-13 22:46] LABS: Salicylate < 5.0 mg/dL (15-30)
[2017-01-13 23:04] LABS: Amphetamine Screen,Urine Negative ng/mL (Cutoff=1000); Barbiturate Screen,Urine Negative ng/mL (Cutoff=200); Benzodiazepines Screen,Urine Negative ng/mL (Cutoff=200); Bilirubin,Urine Negative (Negative); Blood,Urine Negative (Negative); Cannabinoid Screen,Urine Negative ng/mL (Cutoff = 50); Clarity,Urine Clear (Clear); Cocaine Screen,Urine Negative ng/mL (Cutoff= 300); Color,Urine Yellow (Yellow); Glucose,Urine (UA) Normal (Normal); Ketones,Urine Negative (Negative); Leukocyte Esterase,Urine Negative (Negative); Nitrite,Urine Negative (Negative); Opiate Screen,Urine Negative ng/mL (Cutoff=300); Phencyclidine Screen,Urine Negative ng/mL (Cutoff=25); Protein,Urine Negative (Neg-Trace); Specific Gravity,Urine 1.013 (1.010-1.025); Urobilinogen,Urine Normal (Normal)
[2017-01-13 23:04] LABS: Thyroid Stimulating Hormone 7.241 mcIU/mL (0.350-4.840)
--- NOTE | 2017-01-13 23:07 | Emergency Department Note ---
Disposition Clinical Impression: Suicidal thoughts Disposition: Admitted As Inpatient Condition: Good Time of Disposition: 01:33 General Adult HPI - General Chief complaint: ED Psychiatric Symptoms Stated complaint: si has mills on arms/tried to cut herself Time Seen by Provider: 01/13/17 21:59 Source: patient Mode of arrival: ambulatory Limitations: no limitations - History of Present Illness Pain Scale: 7 - Related Data Home Medications Medication Instructions Recorded Confirmed Cyclobenzaprine [Flexeril] 10 mg PO BID 11/02/15 12/24/16 Gabapentin [Neurontin] 600 - 1,200 mg PO QAM AND QHS 11/02/15 12/24/16 Ergocalciferol (VITAMIN D2) 50,000 unit PO QWEEK 12/24/16 12/24/16 [Vitamin D2] Etonogestrel/Ethinyl Estradiol 1 each VG AD 12/24/16 12/24/16 [Nuvaring Vaginal Ring] Gabapentin [Neurontin] 600 mg PO QPM 12/24/16 12/24/16 Ibuprofen 800 mg PO Q8H PRN 12/24/16 12/24/16 Propranolol [Inderal] 20 mg PO BID 12/24/16 12/24/16 RisperiDONE [Risperidone] 3 mg PO HS 12/24/16 12/24/16 Previous Rx's Medication Instructions Recorded Sertraline [Zoloft] 50 mg PO DAILY #30 tablet 12/28/16 Allergies Allergy/AdvReac Type Severity Reaction Status Date / Time Penicillins [PCN] AdvReac Vomiting Verified 01/13/17 21:19 Constitutional: Denies: fever Cardiovascular: Denies: chest pain Gastrointestinal: Denies: abdominal pain, vomiting, diarrhea Past Medical History - Past Medical History Medical history: Reports: asthma, other (Depression) Surgical history: Reports: cholecystectomy Psychiatric history: Reports: anxiety, bipolar, depression, prior suicide attempt, previous psychiatric hospitalization 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 pat and Dr. witt. Patient is here for psychiatric evaluation and suicidal ideation. Medical claims to be completed. Will need to be contacted once workup is completed. No acute physical exam findings at this time. Patient is actually showing signs of paranoid schizophrenia at this time. No other acute suicidal or homicidal ideation. - Reevaluation(s) Reevaluation #1: patient is medically cleared at this time.. Vital signs reviewed. Psychiatric team informed. They will evaluate the patient here in the emergency room. Time: 23:50 Reevaluation #2: Patient is going to be take down to the psychiatric facility in this hospital. They will come to transporter has an inpatient. Time: 01:33 Vital Signs Temperature 98.1 F 01/13/17 21:19 Pulse Rate 95 01/13/17 21:19 Respiratory Rate 20 01/13/17 21:19 Blood Pressure 113/75 01/13/17 21:19 O2 Sat by Pulse Oximetry 95 01/13/17 21:19 Temperature 98.1 F 01/13/17 21:19 Pulse Rate 95 01/13/17 21:19 Respiratory Rate 20 01/13/17 21:19 Blood Pressure 113/75 01/13/17 21:19 O2 Sat by Pulse Oximetry 95 01/13/17 21:19 Oxygen Delivery Oxygen Delivery Room Air Medical Decision Making - MDM Narrative Medical decision making narrative: Paranoid schizophrenia - Medical Records Medical records reviewed: Yes I reviewed the patient's medical records. - Lab Data Lab results reviewed: Yes I reviewed the patient's lab results. Result diagrams: 01/13/17 22:17 01/13/17 22:17 Lab Results 01/13/17 01/13/17 01/13/17 Range/Units 22:00 22:00 22:00 WBC (4.3-11.1) K/mcL RBC (3.82-4.97) M/mcL Hgb (11.5-15.4) g/dL Hct (35.3-44.9) % MCV (83.0-100.0) fL MCH (28.0-33.3) pg MCHC (31.6-35.5) g/dL RDW (11.5-14.5) % Plt Count (140-400) K/mcL MPV (9.4-12.4) fL Immature Gran % (0-4) % Seg Neutrophils % % Lymphocytes % % Monocytes % % Eosinophils % % Basophils % % Neutrophils # (1.6-8.9) K/mcL Lymphocytes # (0.6-4.6) K/mcL Monocytes # (0.0-1.3) K/mcL Eosinophils # (0.0-0.6) K/mcL Basophils # (0.0-0.2) K/mcL Sodium (136-145) mEq/L Potassium (3.5-4.5) mEq/L Chloride (98-109) mEq/L Carbon Dioxide (19-29) mEq/L BUN (7-20) mg/dL Creatinine (0.57-1.11) mg/dL Est GFR ( Amer) (> 60) Est GFR (Non-Af Amer) (> 60) BUN/Creatinine Ratio (6-26) Glucose (70-99) mg/dL Calculated Osmolality (280-300) Calcium (8.6-10.8) mg/dL Total Bilirubin (0.2-1.2) mg/dL AST (5-34) Units/L ALT (0-55) Units/L Alkaline Phosphatase (38-126) Units/L Serum Total Protein (6.0-8.3) g/dL Albumin (3.5-5.0) g/dL Globulin (2.4-3.5) g/dL Albumin/Globulin Ratio (1.1-2.2) TSH (0.350-4.840) mcIU/mL Urine Color Yellow (Yellow) Urine Clarity Clear (Clear) Urine pH 6.0 (5.0-8.0) pH Units Ur Specific [place] 1.013 (1.010-1.025) Urine Protein Negative (Neg-Trace) mg/dL Urine Glucose (UA) Normal (Normal) mg/dL Urine Ketones Negative (Negative) mg/dL Urine Blood Negative (Negative) Urine Nitrite Negative (Negative) Urine Bilirubin Negative (Negative) Urine Urobilinogen Normal (Normal) mg/dL Ur Leukocyte Esterase Negative (Negative) Ur Culture Indicated? NO (NO) Urine Test Negative (Negative) Salicylates (15-30) mg/dL Urine Opiates Screen Negative (Cntlzi=100) ng/mL Acetaminophen (10-30) mcg/mL Ur Barbiturates Screen Negative (Ezxlka=495) ng/mL Ur Phencyclidine Scrn Negative (Cutoff=25) ng/mL Ur Amphetamines Screen Negative (Plxouh=7593) ng/mL U Benzodiazepines Scrn Negative (Xhjcvm=496) ng/mL Urine Cocaine Screen Negative (Cutoff= 300) ng/mL U Marijuana (THC) Screen Negative (Cutoff = 50) ng/mL Ethyl Alcohol (0-10) mg/dL 01/13/17 01/13/17 Range/Units 22:17 22:17 WBC 9.6 (4.3-11.1) K/mcL RBC 4.49 (3.82-4.97) M/mcL Hgb 13.2 (11.5-15.4) g/dL Hct 39.6 (35.3-44.9) % MCV 88.2 (83.0-100.0) fL MCH 29.4 (28.0-33.3) pg MCHC 33.3 (31.6-35.5) g/dL RDW 13.9 (11.5-14.5) % Plt Count 289 (140-400) K/mcL MPV 9.4 (9.4-12.4) fL Immature Gran % 0.2 (0-4) % Seg Neutrophils % 57.8 % Lymphocytes % 32.1 % Monocytes % 6.6 % Eosinophils % 2.7 % Basophils % 0.6 % Neutrophils # 5.6 (1.6-8.9) K/mcL Lymphocytes # 3.1 (0.6-4.6) K/mcL Monocytes # 0.6 (0.0-1.3) K/mcL Eosinophils # 0.3 (0.0-0.6) K/mcL Basophils # 0.1 (0.0-0.2) K/mcL Sodium 135 L (136-145) mEq/L Potassium 3.7 (3.5-4.5) mEq/L Chloride 107 (98-109) mEq/L Carbon Dioxide 19 (19-29) mEq/L BUN 7 (7-20) mg/dL Creatinine 0.81 (0.57-1.11) mg/dL Est GFR ( Amer) > 60 (> 60) Est GFR (Non-Af Amer) > 60 (> 60) BUN/Creatinine Ratio 9 (6-26) Glucose 112 H (70-99) mg/dL Calculated Osmolality 279 L (280-300) Calcium 8.8 (8.6-10.8) mg/dL Total Bilirubin 0.3 (0.2-1.2) mg/dL AST 12 (5-34) Units/L ALT 12 (0-55) Units/L Alkaline Phosphatase 64 (38-126) Units/L Serum Total Protein 7.6 (6.0-8.3) g/dL Albumin 3.8 (3.5-5.0) g/dL Globulin 3.8 H (2.4-3.5) g/dL Albumin/Globulin Ratio 1.0 L (1.1-2.2) TSH 7.241 H (0.350-4.840) mcIU/mL Urine Color (Yellow) Urine Clarity (Clear) Urine pH (5.0-8.0) pH Units Ur Specific [place] (1.010-1.025) Urine Protein (Neg-Trace) mg/dL Urine Glucose (UA) (Normal) mg/dL Urine Ketones (Negative) mg/dL Urine Blood (Negative) Urine Nitrite (Negative) Urine Bilirubin (Negative) Urine Urobilinogen (Normal) mg/dL Ur Leukocyte Esterase (Negative) Ur Culture Indicated? (NO) Urine Test (Negative) Salicylates < 5.0 L (15-30) mg/dL Urine Opiates Screen (Xztzlw=431) ng/mL Acetaminophen < 1.0 L (10-30) mcg/mL Ur Barbiturates Screen (Ewptkk=661) ng/mL Ur Phencyclidine Scrn (Cutoff=25) ng/mL Ur Amphetamines Screen (Iiisvq=2058) ng/mL U Benzodiazepines Scrn (Senxab=716) ng/mL Urine Cocaine Screen (Cutoff= 300) ng/mL U Marijuana (THC) Screen (Cutoff = 50) ng/mL Ethyl Alcohol < 10 (0-10) mg/dL Attestation Statement - Attestation Attestation: I personally interviewed and examined this patient and my medical decision- making was reviewed with the ED Resident Physician, Dr. Escobar. I agree with the documented findings, disposition and treatment plan as described in the documentation. Patient has been admitted for further psychiatric evaluation.
[2017-01-14] MEDS ORDERED: *HR* LORazepam 1 MG TABLET PO PRN (02:26)
[2017-01-14] MEDS ORDERED: Ibuprofen 400 MG TABLET PO PRN (02:26)
[2017-01-14] MEDS ORDERED: MOM Conc 10 ML UD.LIQ PO PRN (02:26)
[2017-01-14] MEDS ORDERED: *HR* LORazepam 2 MG/ML VIAL IM PRN (02:26)
[2017-01-14] MEDS ORDERED: Haloperidol Lactate 5 MG/ML VIAL IM PRN (02:26)
[2017-01-14] MEDS ORDERED: Mag Hydrox/Al Hydrox/Simeth 30 ML UDC PO PRN (02:26)
[2017-01-14] MEDS: traZODone 50 MG TABLET PO PRN ×2 (02:54→20:55)
[2017-01-14] MEDS: Nicotine 21 MG PATCH.TD24 TD SCH (09:11)
--- NOTE | 2017-01-14 13:33 | Psychiatry History & Physical ---
Date of Encounter: 01/14/17 Time of Encounter: 13:31 History of Present Illness Patient Stated Chief Complaint: Depressed, suicidal Medicare Admission Attestation: For traditional Medicare patients the provided hospital inpatient services are reasonable and necessary and in the case of services not specified as inpatient -only under 42 CFR 419.22 (n), that they are appropriately provided as inpatient services in accordance 42 CFR 412.3. For Critical [facility] the patient may reasonably be expected to be discharged or transferred to a hospital within 96 hours after admission to the Critical [facility] Hospital. Admitted From: Emergency Dept History of Present Illness: Ms. Salas is a 26 year old female admitted from the emergency room for depression and suicidal ideation. Patient has a long history of psychiatric treatment for bipolar disorder. She was recently discharged from this unit with similar presentation. She reports increase in anxiety and panic attacks according social situation and having interrupted sleep and feeling suicidal. On review of labs on admission was noted that she had elevated TSH patient has no previous treatment for hypothyroidism. She told me that she started on new medication for muscle spasm ropinirole. Past Med Surg Social Fam HX - Past Medical History Medical history: asthma - Past Psychiatric History Psychiatric history: Reports: anxiety, bipolar, depression, prior suicide attempt, previous psychiatric hospitalization Family psychiatric history: Unknown Family History of Suicide: Unknown - Past Surgical History Surgical History: cholecystectomy - Social History Smoking Status: Current every day smoker Smokeless Tobacco Status: No Alcohol use: none Drug use: none Medications & Allergies Cyclobenzaprine [Flexeril] 10 mg PO BID 11/02/15 [History] Gabapentin [Neurontin] 600 - 1,200 mg PO QAM AND QHS 11/02/15 [History] Etonogestrel/Ethinyl Estradiol [Nuvaring Vaginal Ring] 1 each VG AD 12/24/16 [ History] Gabapentin [Neurontin] 600 mg PO 1200 12/24/16 [History] Propranolol [Inderal] 20 mg PO BID 12/24/16 [History] RisperiDONE [Risperidone] 3 mg PO HS 12/24/16 [History] Sertraline [Zoloft] 50 mg PO DAILY #30 tablet 12/28/16 [Rx] Carbidopa/Levodopa [Carbidopa-Levodopa 25-100 Tab] 2 tab PO BID 01/14/17 [ History] Escitalopram [Lexapro] 10 mg PO DAILY 01/14/17 [History] Ropinirole [Requip] 1 mg PO BID 01/14/17 [History] Allergies desvenlafaxine [From Pristiq] Adverse Reaction (Verified 01/14/17 08:12) Depression Penicillins [PCN] Adverse Reaction (Verified 01/13/17 21:19) Vomiting quetiapine [From Seroquel] Adverse Reaction (Verified 01/14/17 08:12) Depression Review of Systems Psychiatric: Reports: depression, anxiety, suicidal ideation, mood swings Mental Status Exam Patient orientation: Yes Person, Yes Time, Yes Place Level of alertness: Alert Patient appearance: Appropriate, Well Groomed, Obese Behavior: calm, cooperative, anxious, talkative Psychomotor activity: Normal Eye contact: Maintains Eye Contact Mood description: Euthymic/stable, Depressed, Anxious Affect description: congruent with mood, full range, constricted, anxious Speech pattern: Normal rate, Normal rhythm, Normal tone, Clear Speech volume: Normal Thought process: Linear, Goal Oriented Thought content: Yes Suicidal ideation, No Homicidal ideation, No Overt delusions Perceptual disturbances: No Auditory hallucinations, No Visual hallucinations Attention span: Capable of Focused Attention Memory description: Grossly Intact Patient reliability: Reliable Historian Intelligence estimate: Average Judgment: Limited Insight: Partial Results - Vital Signs Vital signs: Temp Pulse Resp BP Pulse Ox 97.6 F 93 16 142/66 95 01/14/17 08:32 01/14/17 08:32 01/14/17 08:32 01/14/17 08:32 01/13/17 21:19 - Labs Labs: Laboratory Last Values WBC 9.6 K/mcL (4.3-11.1) 01/13/17 22: RBC 4.49 M/mcL (3.82-4.97) 01/13/17 22:17 Hgb 13.2 g/dL (11.5-15.4) 01/13/17 22:17 Hct 39.6 % (35.3-44.9) 01/13/17 22:17 MCV 88.2 fL (83.0-100.0) 01/13/17 22:17 MCH 29.4 pg (28.0-33.3) 01/13/17 22:17 MCHC 33.3 g/dL (31.6-35.5) 01/13/17 22:17 RDW 13.9 % (11.5-14.5) 01/13/17 22:17 Plt Count 289 K/mcL (140-400) 01/13/17 22:17 MPV 9.4 fL (9.4-12.4) 01/13/17 22:17 Immature Gran % 0.2 % (0-4) 01/13/17 22:17 Seg Neutrophils % 57.8 % 01/13/17 22:17 Lymphocytes % 32.1 % 01/13/17 22:17 Monocytes % 6.6 % 01/13/17 22:17 Eosinophils % 2.7 % 01/13/17 22:17 Basophils % 0.6 % 01/13/17 22:17 Neutrophils # 5.6 K/mcL (1.6-8.9) 01/13/17 22:17 Lymphocytes # 3.1 K/mcL (0.6-4.6) 01/13/17 22:17 Monocytes # 0.6 K/mcL (0.0-1.3) 01/13/17 22:17 Eosinophils # 0.3 K/mcL (0.0-0.6) 01/13/17 22:17 Basophils # 0.1 K/mcL (0.0-0.2) 01/13/17 22:17 Sodium 135 mEq/L (136-145) L 01/13/17 22:17 Potassium 3.7 mEq/L (3.5-4.5) 01/13/17 22:17 Chloride 107 mEq/L (98-109) 01/13/17 22:17 Carbon Dioxide 19 mEq/L (19-29) 01/13/17 22:17 BUN 7 mg/dL (7-20) 01/13/17 22:17 Creatinine 0.81 mg/dL (0.57-1.11) 01/13/17 22:17 Est GFR ( Amer) > 60 (> 60) 01/13/17 22:17 Est GFR (Non-Af Amer) > 60 (> 60) 01/13/17 22:17 BUN/Creatinine Ratio 9 (6-26) 01/13/17 22:17 Glucose 112 mg/dL (70-99) H 01/13/17 22:17 Calculated Osmolality 279 (280-300) L 01/13/17 22:17 Calcium 8.8 mg/dL (8.6-10.8) 01/13/17 22:17 Total Bilirubin 0.3 mg/dL (0.2-1.2) 01/13/17 22:17 AST 12 Units/L (5-34) 01/13/17 22:17 ALT 12 Units/L (0-55) 01/13/17 22:17 Alkaline Phosphatase 64 Units/L (38-126) 01/13/17 22:17 Serum Total Protein 7.6 g/dL (6.0-8.3) 01/13/17 22: Albumin 3.8 g/dL (3.5-5.0) 01/13/17 22: Globulin 3.8 g/dL (2.4-3.5) H 01/13/17 22: Albumin/Globulin Ratio 1.0 (1.1-2.2) L 01/13/17: TSH 7.241 mcIU/mL (0.350-4.840) H 01/13/17 22:17 Urine Color Yellow (Yellow) 01/13/17 22:00 Urine Clarity Clear (Clear) 01/13/17 22:00 Urine pH 6.0 pH Units (5.0-8.0) 01/13/17 22:00 Ur Specific [place] 1.013 (1.010-1.025) 01/13/17 22:00 Urine Protein Negative mg/dL (Neg-Trace) 01/13/17 22:00 Urine Glucose (UA) Normal mg/dL (Normal) 01/13/17 22:00 Urine Ketones Negative mg/dL (Negative) 01/13/17 22:00 Urine Blood Negative (Negative) 01/13/17 22:00 Urine Nitrite Negative (Negative) 01/13/17 22:00 Urine Bilirubin Negative (Negative) 01/13/17 22:00 Urine Urobilinogen Normal mg/dL (Normal) 01/13/17 22:00 Ur Leukocyte Esterase Negative (Negative) 01/13/17 22:00 Ur Culture Indicated? NO (NO) 01/13/17 22:00 Urine Test Negative (Negative) 01/13/17 22:00 Salicylates < 5.0 mg/dL (15-30) L 01/13/17 22:17 Urine Opiates Screen Negative ng/mL (Dxuglx=582) 01/13/17 22:00 Acetaminophen < 1.0 mcg/mL (10-30) L 01/13/17 22:17 Ur Barbiturates Screen Negative ng/mL (Geqoan=963) 01/13/17 22:00 Ur Phencyclidine Scrn Negative ng/mL (Cutoff=25) 01/13/17 22:00 Ur Amphetamines Screen Negative ng/mL (Bpvwvm=4052) 01/13/17 22:00 U Benzodiazepines Scrn Negative ng/mL (Eccwjy=149) 01/13/17 22:00 Urine Cocaine Screen Negative ng/mL (Cutoff= 300) 01/13/17 22:00 U Marijuana (THC) Screen Negative ng/mL (Cutoff = 50) 01/13/17 22:00 Ethyl Alcohol < 10 mg/dL (0-10) 01/13/17 22:17 Assessment and Plan (1) Bipolar 1 disorder, depressed Current visit: No Status: Acute Plan: Admit inpatient for safety and stabilization, Close observation, Suicide Precautions per unit protocol, Encourage participation in unit milieu, Group Therapy, Monitor sleep, Monitor appetite Additional Plan: Will increase Zoloft to 100 mg daily. Will order prolactin level. TSH is elevated patient is aware and follow-up consultation can be requested. Risks, benefits, side effects, alternatives discussed w/pt: Yes Patient agreeable to treatment: Yes
[2017-01-14] MEDS ORDERED: Carbidopa/Levodopa 25/100 TABLET PO SCH (13:39)
[2017-01-14 14:03] LABS: Prolactin 135.18 ng/mL (5.18-26.53)
[2017-01-14] MEDS: ETONOGESTREL VG SCH (14:59)
[2017-01-14] MEDS: ETHINYL ESTRADIOL VG SCH (14:59)
[2017-01-14] MEDS: Gabapentin 400 MG CAPSULE PO SCH (20:56)
[2017-01-14] MEDS: rOPINIRole 1 MG TABLET PO SCH (20:56)
[2017-01-14] MEDS ORDERED: RisperiDAL 3 MG TABLET PO SCH (21:00)
[2017-01-15] MEDS: rOPINIRole 1 MG TABLET PO SCH ×2 (09:31→20:53)
[2017-01-15] MEDS: Gabapentin 300 MG CAPSULE PO SCH (09:33)
[2017-01-15] MEDS: Nicotine 21 MG PATCH.TD24 TD SCH (09:33)
[2017-01-15] MEDS: hydrOXYzine pamoate 25 MG CAPSULE PO PRN (10:39)
[2017-01-15] MEDS ORDERED: Gabapentin 300 MG CAPSULE PO SCH (12:00)
[2017-01-15] MEDS: ETHINYL ESTRADIOL VG SCH (12:16)
[2017-01-15] MEDS: ETONOGESTREL VG SCH (12:16)
--- NOTE | 2017-01-15 12:59 | Psychiatry Progress Note ---
Date of Encounter: 01/15/17 Time of Encounter: 12:30 Subjective Interval history: Patient is here for follow-up. Staff reported that she is compliant with medication and participate in activities. I received a report on her prolactin level which was very high 135 compared to 35 on December 25. This is a side effect of risperidone and patient was complaining of enlargement and tenderness in her breasts. I discussed with the patient admits medication changes need to be done by reducing risperidone dose and starting on Abilify which she is known not to cause increased prolactin. She is agreeable to the plan and orders will be given. Otherwise she is trying to learn coping skills and maintain healthy diet and activities. She is denying suicidal ideation and reporting improved sleep. Review of Systems Psychiatric: Reports: depression, anxiety, suicidal ideation, mood swings Objective: Exam Patient orientation: Yes Person, Yes Time, Yes Place Level of alertness: Alert Patient appearance: Appropriate, Well Groomed, Obese Behavior: calm, cooperative, anxious, talkative Psychomotor activity: Normal Eye contact: Maintains Eye Contact Mood description: Euthymic/stable, Depressed, Anxious Affect description: congruent with mood, full range, constricted, anxious Speech pattern: Normal rate, Normal rhythm, Normal tone, Clear Speech volume: Normal Thought process: Linear, Goal Oriented Thought content: Yes Suicidal ideation, No Homicidal ideation, No Overt delusions Perceptual disturbances: No Auditory hallucinations, No Visual hallucinations Judgment: Limited Insight: Partial Results - Vital Signs Vital Signs: Temp Pulse Resp BP Pulse Ox 98.8 F 99 16 118/83 95 01/15/17 08:43 01/15/17 08:43 01/15/17 08:43 01/15/17 08:43 01/13/17 21:19 Assessment and Plan (1) Bipolar 1 disorder, depressed Current visit: No Status: Acute Plan: Continue hospitalization, Close observation, Suicide Precautions per unit protocol, Encourage participation in unit milieu, Group Therapy, Monitor sleep, Monitor appetite Additional Plan: Prolactin level is very high at 135 compared to 35 on December 25. Will reduce Risperdal dose to 1 mg at bedtime and start Abilify 5 mg at bedtime as a mood stabilizer with plan to discontinue risperidone later. Risks, benefits, side effects, alternatives discussed w/pt: Yes Patient agreeable to treatment: Yes Consult Discharge Plan - Plan Referrals: [facility] [Outside] - 02/20/17 8:00 am (The above appointment is with Dr. Iqbal, psychiatrist.) [facility] [Outside] - 01/22/17 10:30 am (The above appointment is with Niya Russo, counselor at [facility]. Your first appointment will be very thorough and the total appointment time will take between two and three hours. You will be completing paperwork, meeting with a counselor and a nurse, and developing a treatment plan. You will receive follow- up appointments for on-going services , which could include counseling and community support. Please bring the following with you to your first visit to the clinic: 1) proof of household income (two consecutive pay stubs, social security award letter, bank statement , statement letter from [facility], child support statement, IRS 1040 or W2 form, or a statement from the person who financially supports you stating they help provide for your basic needs), 2) proof of residency (drivers license, a piece of mail showing your address, a statement from person you live with verifying you live at their address), 3) your social security number, and 4) your insurance card (if you have commercial insurance you must call to obtain a prior authorization number before you arrive to your first appointment). If you do not bring these items, you will not be seen.)
[2017-01-15] MEDS: ARIPiprazole 5 MG TABLET PO SCH (20:52)
[2017-01-15] MEDS: risperiDONE 1 MG TABLET PO SCH (20:52)
[2017-01-15] MEDS: traZODone 50 MG TABLET PO PRN (20:53)
[2017-01-15] MEDS: Gabapentin 400 MG CAPSULE PO SCH (20:53)
[2017-01-16] MEDS: rOPINIRole 1 MG TABLET PO SCH ×2 (09:32→20:51)
[2017-01-16] MEDS: Gabapentin 300 MG CAPSULE PO SCH (09:32)
[2017-01-16] MEDS: Nicotine 21 MG PATCH.TD24 TD SCH (09:33)
[2017-01-16] MEDS: ETHINYL ESTRADIOL VG SCH (10:24)
[2017-01-16] MEDS: ETONOGESTREL VG SCH (10:24)
--- NOTE | 2017-01-16 13:31 | Psychiatry Progress Note ---
Date of Encounter: 01/16/17 Time of Encounter: 13:00 Subjective Interval history: Patient seen for follow-up. She reports improved mood and energy. She is tolerating medication changes without any side effects and reports sleep was adequate. I reviewed was heard the treatment plan and medication changes and follow-up plans to check prolactin level in 2-3 weeks. She is interested in adjusting her thyroid and consultation was requested. She denies suicidal ideation, compliant with his medication and participated in activities and groups. Review of Systems Psychiatric: Reports: depression, anxiety, mood swings. Denies: suicidal ideation Objective: Exam Patient orientation: Yes Person, Yes Time, Yes Place Level of alertness: Alert Patient appearance: Appropriate, Well Groomed, Obese Behavior: calm, cooperative, anxious, talkative Psychomotor activity: Normal Eye contact: Maintains Eye Contact Mood description: Euthymic/stable, Depressed, Anxious Affect description: congruent with mood, full range, constricted, anxious Speech pattern: Normal rate, Normal rhythm, Normal tone, Clear Speech volume: Normal Thought process: Linear, Goal Oriented Thought content: No Suicidal ideation, No Homicidal ideation, No Overt delusions Perceptual disturbances: No Auditory hallucinations, No Visual hallucinations Judgment: Limited Insight: Partial Results - Vital Signs Vital Signs: Temp Pulse Resp BP Pulse Ox 98.6 F 91 18 126/76 95 01/16/17 08:48 01/16/17 08:48 01/16/17 08:48 01/16/17 08:48 01/13/17 21:19 Assessment and Plan (1) Bipolar 1 disorder, depressed Current visit: No Status: Acute Plan: Continue hospitalization, Close observation, Suicide Precautions per unit protocol, Encourage participation in unit milieu, Group Therapy, Monitor sleep, Monitor appetite Risks, benefits, side effects, alternatives discussed w/pt: Yes Patient agreeable to treatment: Yes Consult Discharge Plan - Plan Referrals: [facility] [Outside] - 02/20/17 8:00 am (The above appointment is with Dr. Iqbal, psychiatrist.) [facility] [Outside] - 01/22/17 10:30 am (The above appointment is with Niya Russo, counselor at [facility]. Your first appointment will be very thorough and the total appointment time will take between two and three hours. You will be completing paperwork, meeting with a counselor and a nurse, and developing a treatment plan. You will receive follow- up appointments for on-going services , which could include counseling and community support. Please bring the following with you to your first visit to the clinic: 1) proof of household income (two consecutive pay stubs, social security award letter, bank statement , statement letter from [facility], child support statement, IRS 1040 or W2 form, or a statement from the person who financially supports you stating they help provide for your basic needs), 2) proof of residency (drivers license, a piece of mail showing your address, a statement from person you live with verifying you live at their address), 3) your social security number, and 4) your insurance card (if you have commercial insurance you must call to obtain a prior authorization number before you arrive to your first appointment). If you do not bring these items, you will not be seen.)
[2017-01-16] MEDS: risperiDONE 1 MG TABLET PO SCH (20:51)
[2017-01-16] MEDS: Gabapentin 400 MG CAPSULE PO SCH (20:51)
[2017-01-16] MEDS: ARIPiprazole 5 MG TABLET PO SCH (20:51)
[2017-01-16] MEDS: traZODone 50 MG TABLET PO PRN (21:24)
[2017-01-17] MEDS: Nicotine 21 MG PATCH.TD24 TD SCH (08:52)
[2017-01-17] MEDS: rOPINIRole 1 MG TABLET PO SCH ×2 (08:53→21:10)
[2017-01-17] MEDS: Gabapentin 300 MG CAPSULE PO SCH (08:53)
[2017-01-17] MEDS: ETONOGESTREL VG SCH (12:39)
[2017-01-17] MEDS: ETHINYL ESTRADIOL VG SCH (12:39)
[2017-01-17] MEDS ORDERED: traZODone 50 MG TABLET PO PRN (13:29)
--- NOTE | 2017-01-17 13:44 | Psychiatry Progress Note ---
Date of Encounter: 01/17/17 Time of Encounter: 13:00 Subjective Interval history: Brooke was seen today for follow-up and previous notes were reviewed. She reports she returned to the hospital because of significant anxiety and agitation. She notices that the Abilify at nighttime seems to be causing her to wake up more frequently than when she was taking the Risperdal. She reports her mood is slightly improved but still has occasional suicidal ideation. She is not aware of any other side effects of the meds. Patient states that the Risperdal is probably the most helpful medication for her mood and she is worried that the Abilify will not work as well. Review of Systems Psychiatric: Reports: depression, anxiety, abnormal sleep pattern, suicidal ideation (fleeting), hopelessness, irritability, mood swings, panic attacks Objective: Exam Patient orientation: Yes Person, Yes Time, Yes Place Level of alertness: Alert Patient appearance: Appropriate, Well Groomed, Obese Behavior: calm, cooperative, talkative Psychomotor activity: Normal Eye contact: Maintains Eye Contact Mood description: Euthymic/stable, Anxious Affect description: congruent with mood, anxious Speech pattern: Normal rate, Normal rhythm, Normal tone Speech volume: Normal Thought process: Logical, Linear, Goal Oriented Thought content: No Suicidal ideation (fleeting), No Homicidal ideation, No Overt delusions Perceptual disturbances: No Auditory hallucinations, No Visual hallucinations Judgment: Limited Insight: Partial Results - Vital Signs Vital Signs: Temp Pulse Resp BP Pulse Ox 98.4 F 93 16 120/81 95 01/17/17 09:00 01/17/17 09:00 01/17/17 09:00 01/17/17 09:00 01/13/17 21:19 Assessment and Plan (1) Bipolar 1 disorder, depressed Current visit: No Status: Acute Plan: Continue hospitalization, Close observation, Suicide Precautions per unit protocol, Encourage participation in unit milieu, Group Therapy, Monitor sleep, Monitor appetite Additional Plan: We will continue to taper Risperdal. Try moving Abilify to daytime to see if this decreases sleep disruption. Also increase trazodone to 100 mg by mouth at bedtime. Continue to monitor behavior and sleep. Risks, benefits, side effects, alternatives discussed w/pt: Yes Patient agreeable to treatment: Yes (2) Anxiety Current visit: Yes Status: Acute Plan: Continue hospitalization, Close observation, Suicide Precautions per unit protocol, Encourage participation in unit milieu, Group Therapy, Monitor sleep, Monitor appetite Additional Plan: Patient still complaining of some anxiety. Encourage Vistaril when necessary. Encourage positive coping strategies and group attendance. Risks, benefits, side effects, alternatives discussed w/pt: Yes Patient agreeable to treatment: Yes Consult Discharge Plan - Plan Referrals: [facility] [Outside] - 02/20/17 8:00 am (The above appointment is with Dr. Iqbal, psychiatrist.) [facility] [Outside] - 01/22/17 10:30 am (The above appointment is with Niya Russo, counselor at [facility]. Your first appointment will be very thorough and the total appointment time will take between two and three hours. You will be completing paperwork, meeting with a counselor and a nurse, and developing a treatment plan. You will receive follow- up appointments for on-going services , which could include counseling and community support. Please bring the following with you to your first visit to the clinic: 1) proof of household income (two consecutive pay stubs, social security award letter, bank statement , statement letter from [facility], child support statement, IRS 1040 or W2 form, or a statement from the person who financially supports you stating they help provide for your basic needs), 2) proof of residency (drivers license, a piece of mail showing your address, a statement from person you live with verifying you live at their address), 3) your social security number, and 4) your insurance card (if you have commercial insurance you must call to obtain a prior authorization number before you arrive to your first appointment). If you do not bring these items, you will not be seen.)
[2017-01-17] MEDS: ARIPiprazole 5 MG TABLET PO SCH (14:08)
[2017-01-17] MEDS: hydrOXYzine pamoate 25 MG CAPSULE PO PRN (16:43)
[2017-01-17] MEDS: Gabapentin 400 MG CAPSULE PO SCH (21:11)
[2017-01-18] MEDS: ARIPiprazole 5 MG TABLET PO SCH (10:05)
[2017-01-18] MEDS: rOPINIRole 1 MG TABLET PO SCH ×2 (10:06→21:29)
[2017-01-18] MEDS: Gabapentin 300 MG CAPSULE PO SCH (10:06)
[2017-01-18] MEDS: Nicotine 21 MG PATCH.TD24 TD SCH (10:07)
[2017-01-18] MEDS: ETHINYL ESTRADIOL VG SCH (11:54)
[2017-01-18] MEDS: ETONOGESTREL VG SCH (11:54)
[2017-01-18] MEDS ORDERED: hydrOXYzine pamoate 25 MG CAPSULE PO PRN (12:08)
--- NOTE | 2017-01-18 12:19 | Psychiatry Progress Note ---
Date of Encounter: 01/18/17 Time of Encounter: 12:00 Subjective Interval history: Brooke is seen today for follow-up. She reports that she feels her anxiety is improved during the hospitalization. She has some mood swings and irritability especially relating to other patients on the unit. "I get upset about things that are not my business." Patient states that she thinks the Vistaril helps some but the second time that she took it did not work as well. She slept a little bit better with the trazodone and moving the Abilify today time. She did not feel sedated from moving the Abilify during the day. Overall she is hopeful that the Abilify will help with her mood. Review of Systems Constitutional: Reports: other (Fatigue) Eyes: Denies: eye pain, vision change Ears, Nose, Throat: Denies: ear pain, throat pain, dental pain, hearing loss, congestion Cardiovascular: Denies: chest pain, palpitations, dyspnea on exertion Respiratory: Denies: cough, dyspnea, wheezes Gastrointestinal: Denies: abdominal pain, nausea, vomiting, diarrhea, constipation Musculoskeletal: Denies: joint swelling, joint pain Neurological: Denies: headache, weakness, numbness, memory loss Psychiatric: Reports: depression, anxiety, abnormal sleep pattern, irritability , mood swings. Denies: suicidal ideation, panic attacks Objective: Exam Patient orientation: Yes Person, Yes Time, Yes Place Level of alertness: Alert Patient appearance: Appropriate, Well Groomed, Obese Behavior: calm, cooperative, talkative Psychomotor activity: Normal Eye contact: Maintains Eye Contact Mood description: Anxious, Irritable Affect description: congruent with mood, anxious Speech pattern: Normal rate, Normal rhythm, Normal tone Speech volume: Normal Thought process: Logical, Linear, Goal Oriented Thought content: No Suicidal ideation, No Homicidal ideation, No Overt delusions Perceptual disturbances: No Auditory hallucinations, No Visual hallucinations Judgment: Fair Insight: Partial Results - Vital Signs Vital Signs: Temp Pulse Resp BP Pulse Ox 97.2 F L 96 16 125/83 95 01/18/17 08:49 01/18/17 08:49 01/18/17 08:49 01/18/17 08:49 01/13/17 21:19 Assessment and Plan (1) Bipolar 1 disorder, depressed Current visit: No Status: Acute Plan: Continue hospitalization, Close observation, Suicide Precautions per unit protocol, Encourage participation in unit milieu, Group Therapy, Monitor sleep, Monitor appetite Additional Plan: Continue current Abilify dose for now. We will consider titrating up slowly. Patient has tolerated the discontinuation of the Risperdal. We will bump up trazodone to 200 mg daily at bedtime for sleep. Risks, benefits, side effects, alternatives discussed w/pt: Yes Patient agreeable to treatment: Yes (2) Anxiety Current visit: Yes Status: Acute Plan: Continue hospitalization, Close observation, Suicide Precautions per unit protocol, Encourage participation in unit milieu, Group Therapy, Monitor sleep, Monitor appetite Additional Plan: Increase Vistaril to 50 mg 3 times a day when necessary anxiety. Encourage positive coping strategies. Risks, benefits, side effects, alternatives discussed w/pt: Yes Patient agreeable to treatment: Yes Consult Discharge Plan - Plan Referrals: [facility] [Outside] - 02/20/17 8:00 am (The above appointment is with Dr. Iqbal, psychiatrist.) [facility] [Outside] - 01/22/17 10:30 am (The above appointment is with Niya Russo, counselor at [facility]. Your first appointment will be very thorough and the total appointment time will take between two and three hours. You will be completing paperwork, meeting with a counselor and a nurse, and developing a treatment plan. You will receive follow- up appointments for on-going services , which could include counseling and community support. Please bring the following with you to your first visit to the clinic: 1) proof of household income (two consecutive pay stubs, social security award letter, bank statement , statement letter from [facility], child support statement, IRS 1040 or W2 form, or a statement from the person who financially supports you stating they help provide for your basic needs), 2) proof of residency (drivers license, a piece of mail showing your address, a statement from person you live with verifying you live at their address), 3) your social security number, and 4) your insurance card (if you have commercial insurance you must call to obtain a prior authorization number before you arrive to your first appointment). If you do not bring these items, you will not be seen.)
[2017-01-18] MEDS ORDERED: traZODone 50 MG TABLET PO PRN (21:00)
[2017-01-18] MEDS: Gabapentin 400 MG CAPSULE PO SCH (21:29)
[2017-01-19] MEDS: Nicotine 21 MG PATCH.TD24 TD SCH (08:51)
[2017-01-19] MEDS: rOPINIRole 1 MG TABLET PO SCH (08:52)
[2017-01-19] MEDS: Gabapentin 300 MG CAPSULE PO SCH (08:52)
[2017-01-19] MEDS: ARIPiprazole 5 MG TABLET PO SCH (08:52)
[2017-01-19 09:00] VITALS: BP 126/82
[2017-01-19] MEDS ORDERED: risperiDONE 1 MG TABLET PO SCH (10:45)
--- NOTE | 2017-01-19 10:47 | Discharge Summary ---
Date of Encounter: 01/20/17 Time of Encounter: 10:40 Diagnosis - Discharge Diagnosis (1) Bipolar 1 disorder, depressed Status: Acute Medications - Discharge Medications Prescriptions: Aripiprazole [Abilify] 5 mg PO DAILY #30 tablet RisperiDONE [RisperDAL] 1 mg PO HS #30 tablet Sertraline [Zoloft] 100 mg PO DAILY #60 tablet TraZODone 200 mg PO HS PRN #60 tablet PRN Reason: Insomnia Cyclobenzaprine [Flexeril] 10 mg PO BID 11/02/15 [History] Etonogestrel/Ethinyl Estradiol [Nuvaring Vaginal Ring] 1 each VG AD 12/24/16 [ History] Gabapentin [Neurontin] 600 mg PO 1200 12/24/16 [History] Propranolol [Inderal] 20 mg PO BID 12/24/16 [History] Ropinirole [Requip] 1 mg PO BID 01/14/17 [History] Aripiprazole [Abilify] 5 mg PO DAILY #30 tablet 01/19/17 [Rx] Patient Taking Own Medication 0 each VG AD each 01/19/17 [Rx] RisperiDONE [RisperDAL] 1 mg PO HS #30 tablet 01/19/17 [Rx] Sertraline [Zoloft] 100 mg PO DAILY #60 tablet 01/19/17 [Rx] TraZODone 200 mg PO HS PRN #60 tablet 01/19/17 [Rx] Allergies desvenlafaxine [From Pristiq] Adverse Reaction (Verified 01/14/17 08:12) Depression Penicillins [PCN] Adverse Reaction (Verified 01/13/17 21:19) Vomiting quetiapine [From Seroquel] Adverse Reaction (Verified 01/14/17 08:12) Depression Provider Date of admission: 01/14/17 01:39 Primary care physician: PCP NO Consults: 01/14/17 02:21 Consult to Pastoral Services [CONS] Routine Comment: per pt request 01/15/17 13:03 Consult to Endocrinology [CONS] Routine Consulting Provider: [facility] Reason for Consult: elevated TSH Time Notified: 13:06 Call Completed: No Discharging clinician: Dylan Chacon Assessment and Plan - Patient/Caregiver Discharge Instructions Activity: resume usual activities as tolerated Diet: regular diet Additional Instructions: Prolactin level in 2 weeks. - Follow up Plan Follow up with: [facility] [Outside] - 02/20/17 8:00 am (The above appointment is with Dr. Iqbal, psychiatrist.) [facility] [Outside] - 01/22/17 10:30 am (The above appointment is with Niya Russo, counselor at [facility]. Your first appointment will be very thorough and the total appointment time will take between two and three hours. You will be completing paperwork, meeting with a counselor and a nurse, and developing a treatment plan. You will receive follow- up appointments for on-going services , which could include counseling and community support. Please bring the following with you to your first visit to the clinic: 1) proof of household income (two consecutive pay stubs, social security award letter, bank statement , statement letter from [facility], child support statement, IRS 1040 or W2 form, or a statement from the person who financially supports you stating they help provide for your basic needs), 2) proof of residency (drivers license, a piece of mail showing your address, a statement from person you live with verifying you live at their address), 3) your social security number, and 4) your insurance card (if you have commercial insurance you must call to obtain a prior authorization number before you arrive to your first appointment). If you do not bring these items, you will not be seen.) Functional capacity at discharge: independent ambulation Overall status at discharge: Stable Disposition: Home, Self-Care Hospital Course Hospital course: Ms. Salas is a 26 year old female admitted for depression and suicidal ideation. For details of admission please see H&P. On the units patient medication review, risperidone was decreased to 1 mg at bedtime because of hyperprolactinemia. Abilify was added and Zoloft was increased to 100 mg. Patient responded well to medication changes felt less depressed and her sleep improved and energy level improved. TSH was elevated and patient will see her primary care for evaluation and treatment. Prior to discharge patient was medically stable and denies suicidal ideation and her mood improved and she was future oriented. Her follow-up plans review with social media analyst. - Time Spent with Patient Total time spent providing and/or coordinating discharge services: Greater than 30 minutes Quality - Multiple Antipsychotics Patient discharged on 2 or more antipsychotic medications: Yes (Combination is used. To reduce prolactin and keep the benefits of risperid) - Justification Documentation of: Other justification (Combination of 2 antipsychotics is used to decrease prolactin level complications.) Procedures - Procedures Procedures: Medication Management, Crisis Stabilization, Supportive Therapy, Group Therapy, Psychoeducational Therapy Mental Status Exam - Mental Status Exam Patient orientation: Yes Person, Yes Time, Yes Place Level of alertness: Alert Patient appearance: Appropriate, Well Groomed, Obese Behavior: calm, cooperative, talkative Psychomotor activity: Normal Eye contact: Maintains Eye Contact Mood description: Anxious, Irritable Affect description: congruent with mood, anxious Speech pattern: Normal rate, Normal rhythm, Normal tone Speech Volume: Normal Thought process: Logical, Linear, Goal Oriented Thought Content: No Suicidal ideation, No Homicidal ideation, No Overt delusions Perceptual Disturbances: No Auditory hallucinations, No Visual hallucinations Judgment: Fair Insight: Partial
== END 2017-01-19 11:40 | disposition home or self-care (01) | DRG 885 ==
LOC: EMEROO 21:10 → 1ANU 01-14 01:39
PROVIDERS: ADMIT Psychiatry & Neurology Psychiatry; ATTEND Psychiatry & Neurology Psychiatry

== ENCOUNTER 2020-10-24 16:24 | Inpatient (IN) ==
[2020-10-24 17:23] LABS: Basophils # 0.1 K/mcL (0.0-0.2); Basophils % 0.9 %; Eosinophils # 0.3 K/mcL (0.0-0.6); Eosinophils % 3.1 %; Hematocrit 40.3 % (35.3-44.9); Hemoglobin 12.3 g/dL (11.5-15.4); Immature Granulocytes % 0.2 % (0-4); Lymphocytes # 2.3 K/mcL (0.6-4.6); Lymphocytes % 26.2 %; Mean Corpuscular HGB Conc 30.5 g/dL (31.6-35.5); Mean Corpuscular Hemoglobin 26.2 pg (28.0-33.3); Mean Corpuscular Volume 85.7 fL (83.0-100.0); Mean Platelet Volume 9.6 fL (9.4-12.4); Monocytes # 0.6 K/mcL (0.0-1.3); Monocytes % 6.6 %; Neutrophils # 5.5 K/mcL (1.6-8.9); Platelet Count 346 K/mcL (140-400); Red Cell Distribution Width 16.5 % (11.5-14.5); White Blood Count 8.7 K/mcL (4.3-11.1)
[2020-10-24 17:29] LABS: Bilirubin,Urine Negative (Negative); Blood,Urine Negative (Negative); Clarity,Urine Clear (Clear); Color,Urine Light-Yellow (Yellow); Glucose,Urine (UA) Normal (Normal); Ketones,Urine Negative (Negative); Leukocyte Esterase,Urine Trace (Negative); Mucus,Urine Few per lpf (None-Few); Nitrite,Urine Negative (Negative); Protein,Urine Negative (Neg-Trace); RBC,Urine 0-3 per hpf (0-3); Specific Gravity,Urine 1.017 (1.010-1.025); Squamous Epithelial Cell,Urine Moderate per hpf (None-Few); Urobilinogen,Urine Normal (Normal)
[2020-10-24 17:31] LABS: Amphetamine Screen,Urine Negative ng/mL (Cutoff=1000); Barbiturate Screen,Urine Negative ng/mL (Cutoff=200); Benzodiazepines Screen,Urine Negative ng/mL (Cutoff=200); Cannabinoid Screen,Urine Negative ng/mL (Cutoff = 50); Cocaine Screen,Urine Negative ng/mL (Cutoff= 300); Opiate Screen,Urine Negative ng/mL (Cutoff=300); Phencyclidine Screen,Urine Negative ng/mL (Cutoff=25)
[2020-10-24 18:05] LABS: Acetaminophen < 10 mcg/mL (10-20); Alanine Aminotransferase 16 Units/L (7-52); Albumin 4.5 g/dL (3.5-5.7); Albumin/Globulin Ratio 1.7 (1.1-2.2); Alkaline Phosphatase 73 Units/L (34-104); Aspartate Amino Transferase 13 Units/L (13-39); BUN/Creatinine Ratio 13 (6-26); Bilirubin,Indirect 0.3 mg/dL (0.0-1.0); Bilirubin,Total 0.3 mg/dL (0.3-1.0); Blood Urea Nitrogen 9 mg/dL (6-20); Calcium 9.4 mg/dL (8.6-10.3); Carbon Dioxide 24 mEq/L (23-29); Chloride 107 mEq/L (98-107); Ethanol < 10 mg/dL (Less than 10); Globulin 2.7 g/dL (2.4-3.5); Glucose 93 mg/dL (70-105); Osmolality,Calculated 284 (280-300); Potassium 3.6 mEq/L (3.5-5.1); Salicylate < 2.5 mg/dL (15.0-30.0); Sodium 138 mEq/L (136-145); Total Protein 7.2 g/dL (6.4-8.9); Troponin I < 0.03 ng/mL (< 0.04); eGFR For African Americans > 60 (> 60); eGFR For Non-African Americans > 60 (> 60)
[2020-10-24 18:18] LABS: Thyroid Stimulating Hormone 2.946 mcIU/mL (0.340-5.600)
[2020-10-24] MEDS ORDERED: *HR* LORazepam 2 MG/ML VIAL IM PRN (20:13)
[2020-10-24] MEDS ORDERED: MOM Conc 10 ML UD.LIQ PO PRN (20:13)
[2020-10-24] MEDS ORDERED: Acetaminophen 325 MG TABLET PO PRN (20:13)
[2020-10-24] MEDS ORDERED: Mag Hydrox/Al Hydrox/Simeth 30 ML UDC PO PRN (20:13)
[2020-10-24] MEDS ORDERED: *HR* LORazepam 1 MG TABLET PO PRN (20:13)
[2020-10-24] MEDS ORDERED: Haloperidol Lactate 5 MG/ML VIAL IM PRN (20:13)
[2020-10-24] MEDS ORDERED: haloperidoL 5 MG TABLET PO PRN (20:13)
[2020-10-24] MEDS: traZODone 50 MG TABLET PO PRN (22:45)
[2020-10-24] MEDS: Gabapentin 300 MG CAPSULE PO SCH (22:45)
[2020-10-24] MEDS: hydrOXYzine pamoate 25 MG CAPSULE PO PRN (22:45)
[2020-10-25] MEDS: Nicotine 21 MG PATCH.TD24 TD SCH (10:03)
[2020-10-25] MEDS: Gabapentin 300 MG CAPSULE PO SCH ×3 (10:03→20:57)
[2020-10-25] MEDS: traZODone 50 MG TABLET PO PRN (20:57)
[2020-10-25] MEDS: hydrOXYzine pamoate 25 MG CAPSULE PO PRN (20:57)
[2020-10-26] MEDS: Methylphenidate HCl 10 MG TABLET PO SCH ×2 (09:01→12:08)
[2020-10-26] MEDS: Gabapentin 300 MG CAPSULE PO SCH ×3 (09:01→20:08)
[2020-10-26] MEDS: Cyanocobalamin (B-12) 1,000 MCG TABLET PO SCH (09:01)
[2020-10-26] MEDS: Nicotine 21 MG PATCH.TD24 TD SCH (09:01)
[2020-10-26] MEDS: hydrOXYzine pamoate 25 MG CAPSULE PO PRN (20:08)
[2020-10-26] MEDS: traZODone 50 MG TABLET PO PRN (20:08)
[2020-10-27] MEDS: Methylphenidate HCl 10 MG TABLET PO SCH ×2 (09:17→12:37)
[2020-10-27] MEDS: Cyanocobalamin (B-12) 1,000 MCG TABLET PO SCH (09:17)
[2020-10-27] MEDS: Nicotine 21 MG PATCH.TD24 TD SCH (09:18)
[2020-10-27] MEDS: Gabapentin 300 MG CAPSULE PO SCH ×3 (09:18→20:57)
[2020-10-27] MEDS ORDERED: Ibuprofen 400 MG TABLET PO PRN (10:52)
[2020-10-27] MEDS: hydrOXYzine pamoate 25 MG CAPSULE PO PRN (20:57)
[2020-10-27] MEDS: traZODone 50 MG TABLET PO PRN (20:57)
[2020-10-28] MEDS: Methylphenidate HCl 10 MG TABLET PO SCH (08:44)
[2020-10-28] MEDS: Gabapentin 300 MG CAPSULE PO SCH (08:44)
[2020-10-28] MEDS: Cyanocobalamin (B-12) 1,000 MCG TABLET PO SCH (08:44)
[2020-10-28] MEDS: Nicotine 21 MG PATCH.TD24 TD SCH (08:44)
[2020-10-28 09:24] VITALS: BP 115/64
== END 2020-10-28 10:50 | disposition home or self-care (01) | DRG 885 ==
LOC: EMEROOARM 16:24 → 1ANU 20:12
PROVIDERS: ADMIT Psychiatry & Neurology Forensic Psychiatry; ATTEND Psychiatry & Neurology Forensic Psychiatry

== ENCOUNTER 2021-12-12 00:05 | Inpatient (IN) ==
[2021-12-12 00:55] LABS: Amphetamine Screen,Urine Negative ng/mL (Cutoff=1000); Barbiturate Screen,Urine Negative ng/mL (Cutoff=200); Benzodiazepines Screen,Urine Negative ng/mL (Cutoff=200); Cannabinoid Screen,Urine Negative ng/mL (Cutoff = 50); Cocaine Screen,Urine Negative ng/mL (Cutoff= 300); Opiate Screen,Urine Negative ng/mL (Cutoff=300); Phencyclidine Screen,Urine Negative ng/mL (Cutoff=25)
[2021-12-12 00:59] LABS: Bacteria,Urine Few per hpf (None-Few); Bilirubin,Urine Negative (Negative); Blood,Urine Negative (Negative); Clarity,Urine Clear (Clear); Color,Urine Yellow (Yellow); Glucose,Urine (UA) Normal (Normal); Ketones,Urine Negative (Negative); Leukocyte Esterase,Urine Small (Negative); Mucus,Urine Few per lpf (None-Few); Nitrite,Urine Negative (Negative); PH,Urine 5.5 pH Units (5.0-8.0); Protein,Urine Trace mg/dL (Neg-Trace); Specific Gravity,Urine 1.019 (1.010-1.025); Squamous Epithelial Cell,Urine Few per hpf (None-Few); Urobilinogen,Urine Normal (Normal); WBC,Urine 0-3 per hpf (0-3)
[2021-12-12 01:11] LABS: Influenza A PCR Negative (Negative); Influenza B PCR Negative (Negative); Resp. Syncytial Virus PCR Negative (Negative)
[2021-12-12 01:17] LABS: SARS-CoV-2 by PCR (In House) Negative (Negative)
[2021-12-12 01:20] LABS: Basophils # 0.1 K/mcL (0.0-0.2); Basophils % 0.7 %; Eosinophils # 0.2 K/mcL (0.0-0.6); Eosinophils % 2.6 %; Hematocrit 38.2 % (35.3-44.9); Hemoglobin 11.9 g/dL (11.5-15.4); Immature Granulocytes % 0.4 % (0-4); Lymphocytes # 2.5 K/mcL (0.6-4.6); Lymphocytes % 29.8 %; Mean Corpuscular HGB Conc 31.2 g/dL (31.6-35.5); Mean Corpuscular Hemoglobin 26.9 pg (28.0-33.3); Mean Corpuscular Volume 86.2 fL (83.0-100.0); Mean Platelet Volume 9.6 fL (9.4-12.4); Monocytes # 0.5 K/mcL (0.0-1.3); Monocytes % 6.1 %; Platelet Count 311 K/mcL (140-400); Red Blood Count 4.43 M/mcL (3.82-4.97); Red Cell Distribution Width 16.1 % (11.5-14.5); Segmented Neutrophils % 60.4 %; White Blood Count 8.2 K/mcL (4.3-11.1)
[2021-12-12 01:26] LABS: Acetaminophen < 10 mcg/mL (10-20); BUN/Creatinine Ratio 16 (6-26); Blood Urea Nitrogen 14 mg/dL (6-20); Calcium 8.8 mg/dL (8.6-10.3); Carbon Dioxide 23 mEq/L (23-29); Chloride 107 mEq/L (98-107); Ethanol < 10 mg/dL (Less than 10); Glucose 144 mg/dL (70-105); Osmolality,Calculated 291 (280-300); Potassium 3.6 mEq/L (3.5-5.1); Salicylate < 2.5 mg/dL (15.0-30.0); Sodium 139 mEq/L (136-145); eGFR For African Americans > 60 (> 60); eGFR For Non-African Americans > 60 (> 60)
[2021-12-12] MEDS ORDERED: traZODone 50 MG TABLET PO PRN (02:27)
[2021-12-12] MEDS ORDERED: haloperidoL 5 MG TABLET PO PRN (02:27)
[2021-12-12] MEDS ORDERED: MOM Conc 10 ML UD.LIQ PO PRN (02:27)
[2021-12-12] MEDS ORDERED: *HR* LORazepam 2 MG/ML VIAL IM PRN (02:27)
[2021-12-12] MEDS ORDERED: *HR* LORazepam 1 MG TABLET PO PRN (02:27)
[2021-12-12] MEDS ORDERED: Mag Hydrox/Al Hydrox/Simeth 30 ML UDC PO PRN (02:27)
[2021-12-12] MEDS ORDERED: Acetaminophen 325 MG TABLET PO PRN (02:27)
[2021-12-12] MEDS ORDERED: Haloperidol Lactate 5 MG/ML VIAL IM PRN (02:27)
[2021-12-12] MEDS: Ibuprofen 400 MG TABLET PO PRN (03:00)
[2021-12-12] MEDS: hydrOXYzine pamoate 25 MG CAPSULE PO PRN (03:00)
[2021-12-12] MEDS: Gabapentin 300 MG CAPSULE PO SCH ×3 (11:31→20:36)
[2021-12-13] MEDS: Gabapentin 300 MG CAPSULE PO SCH ×3 (10:02→21:37)
[2021-12-13] MEDS: Nicotine 21 MG PATCH.TD24 TD SCH (15:39)
[2021-12-13] MEDS: hydrOXYzine pamoate 25 MG CAPSULE PO PRN (21:37)
[2021-12-13] MEDS: Ibuprofen 400 MG TABLET PO PRN (21:37)
[2021-12-13 23:18] VITALS: O2SAT 99
[2021-12-14 09:31] VITALS: BP 132/82; PULSE 80; TEMP 97.8
[2021-12-14] MEDS: Gabapentin 300 MG CAPSULE PO SCH (09:44)
[2021-12-14] MEDS: Nicotine 21 MG PATCH.TD24 TD SCH (09:51)
== END 2021-12-14 12:34 | disposition home or self-care (01) | DRG 885 ==
LOC: EMEROOARM 00:05 → 1ANU 02:24
PROVIDERS: ADMIT Psychiatry & Neurology Psychiatry; ATTEND Psychiatry & Neurology Psychiatry